=== PATIENT | male | born 1940 | race African-American/Black ===

== ENCOUNTER 2016-12-03 11:51 | Inpatient (IN) | payer OTHER ==
[~2016-12-03] VITALS: Ht 185.4 cm; Wt 104.3 kg
[2016-12-03] VITALS (12 sets, daily range): BP systolic 105–148; BP diastolic 65–90
[~2016-12-03 11:51] MED LIST: [UNRECOGNIZED DRUG - REMARK] SQ
[2016-12-03] MEDS ORDERED: HEPARIN for IV BOLUS 10,000 UNIT/10 ML VIAL. IV PRN (13:00)
[2016-12-03] MEDS: HEPARIN 25,000UTS/500ML PREMIX 500 ML IV PRN (13:38)
[2016-12-03 13:46] LABS: BASO % 0 % (0-3); EOS % 0 % (0-3); HEMATOCRIT 41.6 % (39.0-53.0); HEMOGLOBIN 13.8 g/dL (13.0-17.5); LYMPH # 0.3 x10^3/uL (1.0-4.8); LYMPH % 6 % (24-48); MEAN CORPUSCULAR HEMOGLOBIN 31 pg (25-35); MEAN CORPUSCULAR HGB CONC 33 g/dL (31-37); MEAN CORPUSCULAR VOLUME 93 fL (79-100); MONO % 2 % (0-9); NEUT % 93 % (31-73); PLATELET COUNT 262 x10^3/uL (140-400); RED BLOOD COUNT 4.49 x10^6/uL (4.30-5.70); RED CELL DISTRIBUTION WIDTH 13.2 % (11.5-14.5); WHITE BLOOD COUNT 5.7 x10^3/uL (4.0-11.0)
[2016-12-03 14:13] LABS: ALBUMIN 3.4 g/dL (3.4-5.0); ALBUMIN/GLOBULIN RATIO 0.7 (1.0-1.7); CALCIUM 9.2 mg/dL (8.5-10.1); CREATININE 2.5 mg/dL (0.7-1.3); GFR 30.6; MAGNESIUM 2.1 mg/dL (1.8-2.4); TOTAL BILIRUBIN 0.7 mg/dL (0.2-1.0); TOTAL PROTEIN 8.1 g/dL (6.4-8.2)
[2016-12-03] MEDS: IPRATRPIUM/ALBUTEROL 0.5/2.5MG 3 ML NEBU. NEB SCH ×3 (14:18→19:34)
[2016-12-03 14:47] LABS: % BASOS 1 % (0-3); PLT ESTIMATE ADEQUATE (ADEQUATE)
[2016-12-03 14:48] LABS: POIKILOCYTOSIS SLIGHT
[2016-12-03] MEDS ORDERED: METO100T7 PO (14:55)
[2016-12-03] MEDS ORDERED: ASPI-630 PO (14:55)
[2016-12-03] MEDS ORDERED: INSU100V11 IJ (14:55)
[2016-12-03] MEDS ORDERED: AMLO10TA2 PO (14:55)
[2016-12-03] MEDS ORDERED: FURO40TA4 PO (14:55)
[2016-12-03] MEDS ORDERED: CHOL10003 PO (14:55)
[2016-12-03] MEDS ORDERED: INSU100I13 SQ (14:55)
[2016-12-03] MEDS ORDERED: SENN8.6T99 PO (14:55)
[2016-12-03] MEDS ORDERED: SPIR25TA3 PO (14:55)
[2016-12-03] MEDS ORDERED: ISOS60TA2 PO (15:04)
[2016-12-03] MEDS ORDERED: INSU100I17 SQ (15:04)
[2016-12-03] MEDS ORDERED: ROPI0.5T PO (15:04)
[2016-12-03] MEDS ORDERED: DONE10TA7 PO (15:04)
[2016-12-03] MEDS ORDERED: LISI-334 PO (15:04)
[2016-12-03] MEDS ORDERED: MAGN400T3 PO (15:04)
[2016-12-03] MEDS ORDERED: TAMS0.4C2 PO (15:04)
[2016-12-03] MEDS ORDERED: IPRA3AMP NEB (15:07)
[2016-12-03] MEDS ORDERED: NITR0.4T22 SL (15:07)
[2016-12-03] MEDS ORDERED: OXYB10TA PO (15:07)
[2016-12-03] MEDS ORDERED: BUSP5TAB PO (15:07)
[2016-12-03] MEDS ORDERED: IV NORMAL SALINE 1000ML BAG 1,000 ML IV SCH (15:30)
[2016-12-03] MEDS ORDERED: ALBUTEROL SULFATE 2.5 MG/3 ML NEBU. NEB PRN (17:00)
--- NOTE | 2016-12-03 17:05 | PDOC ---
PULMONARY PROGRESS NOTES Vitals Vital Signs Date Time Temp Pulse Resp B/P (MAP) Pulse Ox O2 Delivery O2 Flow Rate FiO2 12/03/16 16:31 Nasal Cannula 2.0 12/03/16 16:00 98.7 79 24 105/79 (88) 98 98.7 Labs Laboratory Tests Test 12/03/16 13:35 White Blood Count 5.7 x10^3/uL (4.0-11.0) Red Blood Count 4.49 x10^6/uL (4.30-5.70) Hemoglobin 13.8 g/dL (13.0-17.5) Hematocrit 41.6 % (39.0-53.0) Mean Corpuscular Volume 93 fL (79-100) Mean Corpuscular Hemoglobin 31 pg (25-35) Mean Corpuscular Hemoglobin Concent 33 g/dL (31-37) Red Cell Distribution Width 13.2 % (11.5-14.5) Platelet Count 262 x10^3/uL (140-400) Neutrophils (%) (Auto) 93 % (31-73) Lymphocytes (%) (Auto) 6 % (24-48) Monocytes (%) (Auto) 2 % (0-9) Eosinophils (%) (Auto) 0 % (0-3) Basophils (%) (Auto) 0 % (0-3) Neutrophils # (Auto) 5.3 x10^3uL (1.8-7.7) Lymphocytes # (Auto) 0.3 x10^3/uL (1.0-4.8) Monocytes # (Auto) 0.1 x10^3/uL (0.0-1.1) Eosinophils # (Auto) 0.0 x10^3/uL (0.0-0.7) Basophils # (Auto) 0.0 x10^3/uL (0.0-0.2) Segmented Neutrophils % 75 % (35-66) Band Neutrophils % 16 % (0-9) Lymphocytes % 7 % (24-48) Monocytes % 1 % (0-10) Basophils % 1 % (0-3) Platelet Estimate Adequate (ADEQUATE) Poikilocytosis Slight Activated Partial Thromboplast Time 27 SEC (24-38) Sodium Level 138 mmol/L (136-145) Potassium Level 6.0 mmol/L (3.5-5.1) Chloride Level 102 mmol/L (98-107) Carbon Dioxide Level 23 mmol/L (21-32) Anion Gap 13 (6-14) Blood Urea Nitrogen 34 mg/dL (8-26) Creatinine 2.5 mg/dL (0.7-1.3) Estimated GFR (Cockcroft-Gault) 30.6 BUN/Creatinine Ratio 14 (6-20) Glucose Level 395 mg/dL (70-99) Calcium Level 9.2 mg/dL (8.5-10.1) Magnesium Level 2.1 mg/dL (1.8-2.4) Total Bilirubin 0.7 mg/dL (0.2-1.0) Aspartate Amino Transf (AST/SGOT) 103 U/L (15-37) Alanine Aminotransferase (ALT/SGPT) 27 U/L (16-63) Alkaline Phosphatase 125 U/L (46-116) Troponin I Quantitative 16.481 ng/mL (0.000-0.055) Total Protein 8.1 g/dL (6.4-8.2) Albumin 3.4 g/dL (3.4-5.0) Albumin/Globulin Ratio 0.7 (1.0-1.7) Laboratory Tests Test 12/03/16 13:35 White Blood Count 5.7 x10^3/uL (4.0-11.0) Red Blood Count 4.49 x10^6/uL (4.30-5.70) Hemoglobin 13.8 g/dL (13.0-17.5) Hematocrit 41.6 % (39.0-53.0) Mean Corpuscular Volume 93 fL (79-100) Mean Corpuscular Hemoglobin 31 pg (25-35) Mean Corpuscular Hemoglobin Concent 33 g/dL (31-37) Red Cell Distribution Width 13.2 % (11.5-14.5) Platelet Count 262 x10^3/uL (140-400) Neutrophils (%) (Auto) 93 % (31-73) Lymphocytes (%) (Auto) 6 % (24-48) Monocytes (%) (Auto) 2 % (0-9) Eosinophils (%) (Auto) 0 % (0-3) Basophils (%) (Auto) 0 % (0-3) Neutrophils # (Auto) 5.3 x10^3uL (1.8-7.7) Lymphocytes # (Auto) 0.3 x10^3/uL (1.0-4.8) Monocytes # (Auto) 0.1 x10^3/uL (0.0-1.1) Eosinophils # (Auto) 0.0 x10^3/uL (0.0-0.7) Basophils # (Auto) 0.0 x10^3/uL (0.0-0.2) Segmented Neutrophils % 75 % (35-66) Band Neutrophils % 16 % (0-9) Lymphocytes % 7 % (24-48) Monocytes % 1 % (0-10) Basophils % 1 % (0-3) Platelet Estimate Adequate (ADEQUATE) Poikilocytosis Slight Activated Partial Thromboplast Time 27 SEC (24-38) Sodium Level 138 mmol/L (136-145) Potassium Level 6.0 mmol/L (3.5-5.1) Chloride Level 102 mmol/L (98-107) Carbon Dioxide Level 23 mmol/L (21-32) Anion Gap 13 (6-14) Blood Urea Nitrogen 34 mg/dL (8-26) Creatinine 2.5 mg/dL (0.7-1.3) Estimated GFR (Cockcroft-Gault) 30.6 BUN/Creatinine Ratio 14 (6-20) Glucose Level 395 mg/dL (70-99) Calcium Level 9.2 mg/dL (8.5-10.1) Magnesium Level 2.1 mg/dL (1.8-2.4) Total Bilirubin 0.7 mg/dL (0.2-1.0) Aspartate Amino Transf (AST/SGOT) 103 U/L (15-37) Alanine Aminotransferase (ALT/SGPT) 27 U/L (16-63) Alkaline Phosphatase 125 U/L (46-116) Troponin I Quantitative 16.481 ng/mL (0.000-0.055) Total Protein 8.1 g/dL (6.4-8.2) Albumin 3.4 g/dL (3.4-5.0) Albumin/Globulin Ratio 0.7 (1.0-1.7) Medications Active Scripts Medications Dose Route/Sig Max Daily Dose Days Date Category Dose Instructions Duoneb 0.5-3(2.5) Mg/3 Ml (Albuterol/Ipratropium) 3 Ml Ampul.neb 3 Ml NEB PRN BID PRN 12/03/16 Reported NITROGLYCERIN SubLingual (Nitroglycerin) 0.4 Mg Tab.subl 0.4 Mg SL PRN Q5MIN PRN 12/03/16 Reported Buspirone Hcl 5 Mg Tablet 1 Tab PO DAILY 12/03/16 Reported Oxybutynin Chloride Er (Oxybutynin Chloride) 10 Mg Tab.er.24 1 Tab PO DAILY 12/03/16 Reported Novolog Flexpen (Insulin Aspart) 100 Unit/1 Ml Insuln.pen 16 Unit SQ TIDWMEALS 12/03/16 Reported Tamsulosin Hcl 0.4 Mg Cap.er.24h 1 Cap PO HS 12/03/16 Reported Lisinopril 20 Mg Tablet 1.5 Tab PO BID 12/03/16 Reported [lyric evolocumab] 140 Mg SQ UD 12/03/16 Reported every 2 months Magnesium Oxide 400 Mg Tablet 400 Mg PO DAILY 12/03/16 Reported Isosorbide Mononitrate Er (Isosorbide Mononitrate) 60 Mg Tab.er.24h 120 Mg PO DAILY 12/03/16 Reported Requip (Ropinirole Hcl) 0.5 Mg Tablet 0.5 Mg PO HS 12/03/16 Reported Donepezil Hcl 10 Mg Tablet 1 Tab PO DAILY 12/03/16 Reported Vitamin D3 (Cholecalciferol (Vitamin D3)) 1,000 Unit Tablet 2 Tab PO DAILY 12/03/16 Reported Spironolactone 25 Mg Tablet 1 Tab PO DAILY 12/03/16 Reported Aspirin 81 Mg Tab.chew 1 Tab PO DAILY 12/03/16 Reported Novolin R (Insulin Regular, Human) 100 Unit/1 Ml Vial 100 Unit IJ 12/03/16 Reported Lantus Solostar (Insulin Glargine,Hum.rec.anlog) 100 Unit/1 Ml Insuln.pen 26 Unit SQ QHS 12/03/16 Reported Amlodipine Besylate 10 Mg Tablet 5 Mg PO HS 12/03/16 Reported Senokot (Sennosides) 8.6 Mg Tablet 8.6 Mg PO PRN DAILY PRN 12/03/16 Reported Metoprolol Tartrate 100 Mg Tablet 0.5 Tab PO BID 12/03/16 Reported Furosemide 40 Mg Tablet 2 Tab PO [id number] 12/03/16 Reported Impression . acute resp failure acute chf acute MN UMANG HOLBROOK MD Dec 03, 2016 17:05
[2016-12-03] MEDS ORDERED: ASPIRIN ENTERIC COATED 325 MG TABLET.DR. PO ONE (19:15)
[2016-12-03] MEDS: ACETYLCYSTEINE 20% ORAL SOLN 600 MG/3 ML SYRINGE. PO SCH (20:16)
--- NOTE | 2016-12-03 21:47 | EKG ---
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
[2016-12-03] MEDS: NITROGLYCERIN OINT 1 GM PACKET. TP SCH (23:42)
[2016-12-04] VITALS (24 sets, daily range): BP systolic 84–156; BP diastolic 58–94
[2016-12-04] MEDS ORDERED: NITROGLYCERIN OINT 1 GM PACKET. TP SCH
[2016-12-04] MEDS ORDERED: NITROGLYCERIN SUBLINGUAL 0.4 MG BOTTLE OF 25. SL PRN ×2 (01:00→09:30)
[2016-12-04] MEDS ORDERED: FUROSEMIDE 100 MG/10 ML VIAL. IVP ONE (01:00)
[2016-12-04 05:31] LABS: BASO % 0 % (0-3); EOS % 0 % (0-3); HEMATOCRIT 38.5 % (39.0-53.0); HEMOGLOBIN 13.1 g/dL (13.0-17.5); LYMPH # 0.5 x10^3/uL (1.0-4.8); LYMPH % 4 % (24-48); MEAN CORPUSCULAR HEMOGLOBIN 31 pg (25-35); MEAN CORPUSCULAR HGB CONC 34 g/dL (31-37); MEAN CORPUSCULAR VOLUME 91 fL (79-100); MONO % 7 % (0-9); NEUT % 88 % (31-73); PLATELET COUNT 251 x10^3/uL (140-400); RED BLOOD COUNT 4.26 x10^6/uL (4.30-5.70); RED CELL DISTRIBUTION WIDTH 13.6 % (11.5-14.5); WHITE BLOOD COUNT 12.6 x10^3/uL (4.0-11.0)
[2016-12-04 05:32] LABS: CALCIUM 9.4 mg/dL (8.5-10.1); CREATININE 2.8 mg/dL (0.7-1.3); GFR 26.9; MAGNESIUM 1.8 mg/dL (1.8-2.4); POTASSIUM 4.8 mmol/L (3.5-5.1)
[2016-12-04] MEDS: NITROGLYCERIN OINT 1 GM PACKET. TP SCH ×2 (06:19→11:12)
[2016-12-04] MEDS: IPRATRPIUM/ALBUTEROL 0.5/2.5MG 3 ML NEBU. NEB SCH ×4 (07:54→20:09)
[2016-12-04] MEDS: ASPIRIN ENTERIC COATED 325 MG TABLET.DR. PO SCH (08:26)
[2016-12-04] MEDS ORDERED: INFLUENZA VAX SCREEN BY RX. MC PRN (08:30)
[2016-12-04] MEDS ORDERED: FLU VACC QS2017-18 (36MOS+)/PF 0.5 ML SYRINGE. VAX IM ONE (08:45)
--- NOTE | 2016-12-04 08:46 | RAD ---
EXAM: Chest, single view. HISTORY: Infiltrate. COMPARISON: None. FINDINGS: A frontal view of the chest is obtained. There is diffuse right upper lobe and perihilar predominant infiltrate. There is no effusion or pneumothorax. The heart is normal in size. There is evidence of prior median sternotomy. IMPRESSION: Diffuse right upper lobe and right perihilar predominant infiltrate. Follow-up to confirm complete resolution.
[2016-12-04] MEDS: ACETYLCYSTEINE 20% ORAL SOLN 600 MG/3 ML SYRINGE. PO SCH ×2 (09:00→20:51)
[2016-12-04] MEDS: HEPARIN 25,000UTS/500ML PREMIX 500 ML IV PRN (09:08)
[2016-12-04] MEDS ORDERED: IPRATRPIUM/ALBUTEROL 0.5/2.5MG 3 ML NEBU. NEB PRN (09:30)
[2016-12-04] MEDS ORDERED: EVOLOCUMAB 140 MG SQ SCH (09:30)
[2016-12-04] MEDS ORDERED: SENNOSIDES 8.6 MG TABLET PO PRN (09:30)
--- NOTE | 2016-12-04 09:40 | PDOC ---
PROGRESS NOTES Subjective Subjective Patient seen and examined. He denies chest pain. He reports mild shortness of breath. Objective Objective Vital Signs Date Time Temp Pulse Resp B/P (MAP) Pulse Ox O2 Delivery O2 Flow Rate FiO2 12/04/16 08:00 Nasal Cannula 2.5 12/04/16 07:00 98.5 100 22 140/86 (104) 90 98.5 Intake and Output 12/05/16 07:00 Output Total 200 ml Balance -200 ml Output Urine Total 200 ml Physical Exam Abdomen: Normal bowel sounds Heart: Regular rate General: No acute distress Lungs: Other (mildly decreased breath sounds) Assessment Assessment 1. Non-ST elevated myocardial infarction. Patient is pain-free. Troponin has increased to 25. Echocardiogram shows an ejection fraction of 15%. Preliminary report from the patient's most recent heart catheterization from 2 years ago shows a 70% left main, an occluded proximal LAD, 99% proximal left circumflex and an occluded right coronary artery. A CARRINGTON graft to the LAD was patent with a 70% distal lesion at the anastomosis. A vein graft to diagonal was patent. A vein graft to the obtuse marginal was closed. A vein graft to the right coronary artery was closed. Ejection fraction reportedly from April 2015 with 55% with mild mitral regurgitation. The patient is pain-free as above. We' ll continue on anticoagulation and baseline medications including beta blockers. Patient has chronic kidney disease with a creatinine yesterday of 2.5 and a potassium of 6.0. Potassium has normalized stable and his creatinine has increased to 2.8. We will continue medical treatment at this time. We'll obtain catheterization report from 2 years ago. We will consider future catheterization after stabilization of the patient's kidney function and further discussion with him regarding the risks and benefits of intervention. 2. Acute on chronic systolic heart failure. Fluid status mildly improved today. Ejection fraction of 15%. Renal consult has been obtained. 3. Diabetes mellitus as per the primary service. 4. Hypertension. We'll adjust medications as needed. 6. Reported hyperlipidemia. We'll check lipid panel. [facility]. [facility] a [facility] a cerebral infarction and mixed dementia. We' ll continue to monitor. 8. Possible sleep apnea. We'll attempt to obtain further records. Thank you for allowing us to participate in the care of your patient. Comment Review of Relevant I have reviewed the following items yomi (where applicable) has been applied. Labs Laboratory Tests Test 12/03/16 12:49 12/03/16 13:35 12/03/16 20:40 12/04/16 03:00 Nasal Screen MRSA (PCR) Negative (Negative) White Blood Count 5.7 x10^3/uL (4.0-11.0) Red Blood Count 4.49 x10^6/uL (4.30-5.70) Hemoglobin 13.8 g/dL (13.0-17.5) Hematocrit 41.6 % (39.0-53.0) Mean Corpuscular Volume 93 fL (79-100) Mean Corpuscular Hemoglobin 31 pg (25-35) Mean Corpuscular Hemoglobin Concent 33 g/dL (31-37) Red Cell Distribution Width 13.2 % (11.5-14.5) Platelet Count 262 x10^3/uL (140-400) Neutrophils (%) (Auto) 93 % (31-73) Lymphocytes (%) (Auto) 6 % (24-48) Monocytes (%) (Auto) 2 % (0-9) Eosinophils (%) (Auto) 0 % (0-3) Basophils (%) (Auto) 0 % (0-3) Neutrophils # (Auto) 5.3 x10^3uL (1.8-7.7) Lymphocytes # (Auto) 0.3 x10^3/uL (1.0-4.8) Monocytes # (Auto) 0.1 x10^3/uL (0.0-1.1) Eosinophils # (Auto) 0.0 x10^3/uL (0.0-0.7) Basophils # (Auto) 0.0 x10^3/uL (0.0-0.2) Segmented Neutrophils % 75 % (35-66) Band Neutrophils % 16 % (0-9) Lymphocytes % 7 % (24-48) Monocytes % 1 % (0-10) Basophils % 1 % (0-3) Platelet Estimate Adequate (ADEQUATE) Poikilocytosis Slight Activated Partial Thromboplast Time 27 SEC (24-38) Sodium Level 138 mmol/L (136-145) Potassium Level 6.0 mmol/L (3.5-5.1) Chloride Level 102 mmol/L (98-107) Carbon Dioxide Level 23 mmol/L (21-32) Anion Gap 13 (6-14) Blood Urea Nitrogen 34 mg/dL (8-26) Creatinine 2.5 mg/dL (0.7-1.3) Estimated GFR (Cockcroft-Gault) 30.6 BUN/Creatinine Ratio 14 (6-20) Glucose Level 395 mg/dL (70-99) Calcium Level 9.2 mg/dL (8.5-10.1) Magnesium Level 2.1 mg/dL (1.8-2.4) Total Bilirubin 0.7 mg/dL (0.2-1.0) Aspartate Amino Transf (AST/SGOT) 103 U/L (15-37) Alanine Aminotransferase (ALT/SGPT) 27 U/L (16-63) Alkaline Phosphatase 125 U/L (46-116) Troponin I Quantitative 16.481 ng/mL (0.000-0.055) Total Protein 8.1 g/dL (6.4-8.2) Albumin 3.4 g/dL (3.4-5.0) Albumin/Globulin Ratio 0.7 (1.0-1.7) Heparin Anti-Xa Act, Unfractionated 0.49 IU/mL (0.30-0.70) 0.39 IU/mL (0.30-0.70) Test 12/04/16 04:55 White Blood Count 12.6 x10^3/uL (4.0-11.0) Red Blood Count 4.26 x10^6/uL (4.30-5.70) Hemoglobin 13.1 g/dL (13.0-17.5) Hematocrit 38.5 % (39.0-53.0) Mean Corpuscular Volume 91 fL (79-100) Mean Corpuscular Hemoglobin 31 pg (25-35) Mean Corpuscular Hemoglobin Concent 34 g/dL (31-37) Red Cell Distribution Width 13.6 % (11.5-14.5) Platelet Count 251 x10^3/uL (140-400) Neutrophils (%) (Auto) 88 % (31-73) Lymphocytes (%) (Auto) 4 % (24-48) Monocytes (%) (Auto) 7 % (0-9) Eosinophils (%) (Auto) 0 % (0-3) Basophils (%) (Auto) 0 % (0-3) Neutrophils # (Auto) 11.1 x10^3uL (1.8-7.7) Lymphocytes # (Auto) 0.5 x10^3/uL (1.0-4.8) Monocytes # (Auto) 0.9 x10^3/uL (0.0-1.1) Eosinophils # (Auto) 0.0 x10^3/uL (0.0-0.7) Basophils # (Auto) 0.0 x10^3/uL (0.0-0.2) Sodium Level 136 mmol/L (136-145) Potassium Level 4.8 mmol/L (3.5-5.1) Chloride Level 98 mmol/L (98-107) Carbon Dioxide Level 18 mmol/L (21-32) Anion Gap 20 (6-14) Blood Urea Nitrogen 39 mg/dL (8-26) Creatinine 2.8 mg/dL (0.7-1.3) Estimated GFR (Cockcroft-Gault) 26.9 Glucose Level 375 mg/dL (70-99) Calcium Level 9.4 mg/dL (8.5-10.1) Magnesium Level 1.8 mg/dL (1.8-2.4) Troponin I Quantitative 25.763 ng/mL (0.000-0.055) Laboratory Tests Test 12/03/16 12:49 12/03/16 13:35 12/03/16 20:40 12/04/16 03:00 Nasal Screen MRSA (PCR) Negative (Negative) White Blood Count 5.7 x10^3/uL (4.0-11.0) Red Blood Count 4.49 x10^6/uL (4.30-5.70) Hemoglobin 13.8 g/dL (13.0-17.5) Hematocrit 41.6 % (39.0-53.0) Mean Corpuscular Volume 93 fL (79-100) Mean Corpuscular Hemoglobin 31 pg (25-35) Mean Corpuscular Hemoglobin Concent 33 g/dL (31-37) Red Cell Distribution Width 13.2 % (11.5-14.5) Platelet Count 262 x10^3/uL (140-400) Neutrophils (%) (Auto) 93 % (31-73) Lymphocytes (%) (Auto) 6 % (24-48) Monocytes (%) (Auto) 2 % (0-9) Eosinophils (%) (Auto) 0 % (0-3) Basophils (%) (Auto) 0 % (0-3) Neutrophils # (Auto) 5.3 x10^3uL (1.8-7.7) Lymphocytes # (Auto) 0.3 x10^3/uL (1.0-4.8) Monocytes # (Auto) 0.1 x10^3/uL (0.0-1.1) Eosinophils # (Auto) 0.0 x10^3/uL (0.0-0.7) Basophils # (Auto) 0.0 x10^3/uL (0.0-0.2) Segmented Neutrophils % 75 % (35-66) Band Neutrophils % 16 % (0-9) Lymphocytes % 7 % (24-48) Monocytes % 1 % (0-10) Basophils % 1 % (0-3) Platelet Estimate Adequate (ADEQUATE) Poikilocytosis Slight Activated Partial Thromboplast Time 27 SEC (24-38) Sodium Level 138 mmol/L (136-145) Potassium Level 6.0 mmol/L (3.5-5.1) Chloride Level 102 mmol/L (98-107) Carbon Dioxide Level 23 mmol/L (21-32) Anion Gap 13 (6-14) Blood Urea Nitrogen 34 mg/dL (8-26) Creatinine 2.5 mg/dL (0.7-1.3) Estimated GFR (Cockcroft-Gault) 30.6 BUN/Creatinine Ratio 14 (6-20) Glucose Level 395 mg/dL (70-99) Calcium Level 9.2 mg/dL (8.5-10.1) Magnesium Level 2.1 mg/dL (1.8-2.4) Total Bilirubin 0.7 mg/dL (0.2-1.0) Aspartate Amino Transf (AST/SGOT) 103 U/L (15-37) Alanine Aminotransferase (ALT/SGPT) 27 U/L (16-63) Alkaline Phosphatase 125 U/L (46-116) Troponin I Quantitative 16.481 ng/mL (0.000-0.055) Total Protein 8.1 g/dL (6.4-8.2) Albumin 3.4 g/dL (3.4-5.0) Albumin/Globulin Ratio 0.7 (1.0-1.7) Heparin Anti-Xa Act, Unfractionated 0.49 IU/mL (0.30-0.70) 0.39 IU/mL (0.30-0.70) Test 12/04/16 04:55 White Blood Count 12.6 x10^3/uL (4.0-11.0) Red Blood Count 4.26 x10^6/uL (4.30-5.70) Hemoglobin 13.1 g/dL (13.0-17.5) Hematocrit 38.5 % (39.0-53.0) Mean Corpuscular Volume 91 fL (79-100) Mean Corpuscular Hemoglobin 31 pg (25-35) Mean Corpuscular Hemoglobin Concent 34 g/dL (31-37) Red Cell Distribution Width 13.6 % (11.5-14.5) Platelet Count 251 x10^3/uL (140-400) Neutrophils (%) (Auto) 88 % (31-73) Lymphocytes (%) (Auto) 4 % (24-48) Monocytes (%) (Auto) 7 % (0-9) Eosinophils (%) (Auto) 0 % (0-3) Basophils (%) (Auto) 0 % (0-3) Neutrophils # (Auto) 11.1 x10^3uL (1.8-7.7) Lymphocytes # (Auto) 0.5 x10^3/uL (1.0-4.8) Monocytes # (Auto) 0.9 x10^3/uL (0.0-1.1) Eosinophils # (Auto) 0.0 x10^3/uL (0.0-0.7) Basophils # (Auto) 0.0 x10^3/uL (0.0-0.2) Sodium Level 136 mmol/L (136-145) Potassium Level 4.8 mmol/L (3.5-5.1) Chloride Level 98 mmol/L (98-107) Carbon Dioxide Level 18 mmol/L (21-32) Anion Gap 20 (6-14) Blood Urea Nitrogen 39 mg/dL (8-26) Creatinine 2.8 mg/dL (0.7-1.3) Estimated GFR (Cockcroft-Gault) 26.9 Glucose Level 375 mg/dL (70-99) Calcium Level 9.4 mg/dL (8.5-10.1) Magnesium Level 1.8 mg/dL (1.8-2.4) Troponin I Quantitative 25.763 ng/mL (0.000-0.055) Medications Current Medications Heparin Sodium/ Dextrose 500 ml @ 0 mls/hr CONT PRN IV SEE I/O RECORD Last administered on 12/04/16 09:08; Start 12/03/16 at 13:00 Heparin Sodium (Porcine) (Heparin Sodium) 2,450 unit PRN Q6HRS PRN IV FOR UFH LEVEL LESS THAN 0.2 Last administered on 12/03/16 13:30; Start 12/03/16 at 13: 00 Albuterol/ Ipratropium (Duoneb) 3 ml RTQID NEB Last administered on 12/04/16 07:54; Start 12/03/16 at 14:00 Sodium Chloride 1,000 ml @ 60 mls/hr [id number] IV ; Start 12/03/16 at 15:30; Stop 12/03/16 at 17:15; Status DC Acetylcysteine (Mucomyst 20% Oral Solution) 600 mg BID PO Last administered on 12/03/16 20:16; Start 12/03/16 at 21:00; Stop 12/05/16 at 20:59 Albuterol Sulfate (Ventolin Neb Soln) 2.5 mg PRN Q2HR PRN NEB [id number] Last administered on 12/03/16 23:49; Start 12/03/16 at 17:00 Aspirin (Ecotrin) 325 mg 1X ONCE PO Last administered on 12/03/16 20:16; Start 12/03/16 at 19:15; Stop 12/03/16 at 19:24; Status DC Aspirin (Ecotrin) 325 mg [id number] PO Last administered on 12/04/16 08:26; Start 12/04/16 at 08:00 Nitroglycerin (Nitro-Bid Oint) 1.5 inch Q6HRS TP ; Start 12/04/16 at 00:00; Stop 12/04/16 at 00:00; Status DC Nitroglycerin (Nitro-Bid Oint) 1.5 inch Q6HRS TP Last administered on 06:19; Start 12/04/16 at 00:00 Nitroglycerin (Nitrostat) 0.4 mg PRN Q5MIN PRN SL CHEST PAIN; Start 12/04/16 at 01:00 Furosemide (Lasix) 80 mg 1X ONCE IVP Last administered on 12/04/16 01:07; Start 12/04/16 at 01:00; Stop 12/04/16 at 01:01; Status DC Info (Do NOT chart on this placeholder) 1 each PRN 1X PRN MC SEE COMMENTS; Start 12/04/16 at 08:30; Status UNV Influenza Virus Vaccine Quadrival (Fluarix Quad [id number] Syringe) 0.5 ml ONCE ONCE VAX IM Last administered on 12/04/16 09:10; Start 12/04/16 at 08:45; Stop 12/04/16 at 08:46; Status DC Amlodipine Besylate (Norvasc) 5 mg HS PO ; Start 12/04/16 at 21:00; Status UNV Aspirin (Children'S Aspirin) 81 mg DAILY PO ; Start 12/05/16 at 09:00; Status UNV Buspirone HCl (Buspar) 5 mg DAILY PO ; Start 12/05/16 at 09:00; Status UNV Vitamin D (Vitamin D3) 2,000 unit DAILY PO ; Start 12/05/16 at 09:00; Status UNV Donepezil HCl (Aricept) 10 mg DAILY PO ; Start 12/05/16 at 09:00; Status UNV Furosemide (Lasix) 80 mg [id number] PO ; Start 12/04/16 at 14:00; Status UNV Insulin Aspart (NovoLOG) 16 units TIDWMEALS SQ ; Start 12/04/16 at 12:00; Status UNV Albuterol/ Ipratropium (Duoneb) 3 ml PRN BID PRN NEB SHORTNESS OF BREATH; Start 12/04/16 at 09:30; Status UNV Lisinopril (Prinivil) 30 mg BID PO ; Start 12/04/16 at 21:00; Status UNV Magnesium Oxide (Magnesium Oxide) 400 mg DAILY PO ; Start 12/05/16 at 09:00; Status UNV Nitroglycerin (Nitrostat) 0.4 mg PRN Q5MIN PRN SL CHEST PAIN; Start 12/04/16 at 09:30; Status UNV Sennosides (Senna) 8.6 mg PRN DAILY PRN PO CONSTIPATION; Start 12/04/16 at 09: 30; Status UNV Spironolactone (Aldactone) 25 mg DAILY PO ; Start 12/05/16 at 09:00; Status UNV Tamsulosin HCl (Flomax) 0.4 mg HS PO ; Start 12/04/16 at 21:00; Status UNV Non-Formulary Medication 26 unit QHS SQ ; Start 12/04/16 at 21:00; Status UNV Non-Formulary Medication 120 mg DAILY PO ; Start 12/05/16 at 09:00; Status UNV Non-Formulary Medication 0.5 tab BID PO ; Start 12/04/16 at 21:00; Status UNV Non-Formulary Medication 1 tab DAILY PO ; Start 12/05/16 at 09:00; Status UNV Non-Formulary Medication 0.5 mg HS PO ; Start 12/04/16 at 21:00; Status UNV Non-Formulary Medication 140 mg UD SQ ; Start 12/04/16 at 09:30; Status UNV Active Scripts Active Reported Duoneb 0.5-3(2.5) Mg/3 Ml (Albuterol/Ipratropium) 3 Ml Ampul.neb 3 Ml NEB PRN BID PRN NITROGLYCERIN SubLingual (Nitroglycerin) 0.4 Mg Tab.subl 0.4 Mg SL PRN Q5MIN PRN Buspirone Hcl 5 Mg Tablet 1 Tab PO DAILY Oxybutynin Chloride Er (Oxybutynin Chloride) 10 Mg Tab.er.24 1 Tab PO DAILY Novolog Flexpen (Insulin Aspart) 100 Unit/1 Ml Insuln.pen 16 Unit SQ TIDWMEALS Tamsulosin Hcl 0.4 Mg Cap.er.24h 1 Cap PO HS Lisinopril 20 Mg Tablet 1.5 Tab PO BID [lyric evolocumab] 140 Mg SQ UD every 2 months Magnesium Oxide 400 Mg Tablet 400 Mg PO DAILY Isosorbide Mononitrate Er (Isosorbide Mononitrate) 60 Mg Tab.er.24h 120 Mg PO DAILY Requip (Ropinirole Hcl) 0.5 Mg Tablet 0.5 Mg PO HS Donepezil Hcl 10 Mg Tablet 1 Tab PO DAILY Vitamin D3 (Cholecalciferol (Vitamin D3)) 1,000 Unit Tablet 2 Tab PO DAILY Spironolactone 25 Mg Tablet 1 Tab PO DAILY Aspirin 81 Mg Tab.chew 1 Tab PO DAILY Novolin R (Insulin Regular, Human) 100 Unit/1 Ml Vial 100 Unit IJ Lantus Solostar (Insulin Glargine,Hum.rec.anlog) 100 Unit/1 Ml Insuln.pen 26 Unit SQ QHS Amlodipine Besylate 10 Mg Tablet 5 Mg PO HS Senokot (Sennosides) 8.6 Mg Tablet 8.6 Mg PO PRN DAILY PRN Metoprolol Tartrate 100 Mg Tablet 0.5 Tab PO BID Furosemide 40 Mg Tablet 2 Tab PO [id number] Vitals/I & O Vital Sign - Last 24 Hours 12/03/16 12/03/16 12/03/16 12/03/16 12:45 12:45 13:00 14:00 Temp 97.9 97.9 Pulse 84 72 73 Resp 27 18 19 B/P (MAP) 142/90 (107) 138/75 (96) 133/68 (89) Pulse Ox 99 100 100 O2 Delivery Nasal Cannula Nasal Cannula Nasal Cannula Nasal Cannula O2 Flow Rate 2.0 2.0 2.0 2.0 12/03/16 12/03/16 12/03/16 12/03/16 14:19 15:00 16:00 16:00 Temp 98.7 98.7 Pulse 78 79 Resp 18 24 B/P (MAP) 144/67 (92) 105/79 (88) Pulse Ox 98 98 98 O2 Delivery Nasal Cannula Nasal Cannula Nasal Cannula Nasal Cannula O2 Flow Rate 2.0 2.0 2.0 2.0 12/03/16 12/03/16 12/03/16 12/03/16 16:31 17:00 18:00 19:00 Pulse 88 100 88 Resp 24 30 24 B/P (MAP) 128/66 (86) 121/67 (85) 139/69 (92) Pulse Ox 99 99 98 O2 Delivery Nasal Cannula Nasal Cannula Nasal Cannula Nasal Cannula O2 Flow Rate 2.0 2.0 2.0 2.0 12/03/16 12/03/16 12/03/16 12/03/16 19:35 20:00 20:00 21:00 Temp 97.8 97.8 Pulse 88 102 Resp 20 23 B/P (MAP) 131/65 (87) 148/89 (108) Pulse Ox 99 100 98 O2 Delivery Nasal Cannula Nasal Cannula Nasal Cannula Nasal Cannula O2 Flow Rate 2.0 2.0 2.0 2.0 12/03/16 12/03/16 12/03/16 12/03/16 22:00 23:00 23:42 23:49 Pulse 94 96 104 Resp 18 20 B/P (MAP) 124/67 (86) 143/74 (97) 142/91 Pulse Ox 99 98 O2 Delivery Nasal Cannula Nasal Cannula Nasal Cannula O2 Flow Rate 2.0 2.0 2.0 12/03/16 12/04/16 12/04/16 12/04/16 23:50 00:00 01:00 02:00 Temp 98.7 98.7 Pulse 98 114 102 Resp 30 22 B/P (MAP) 139/70 (93) 156/94 (114) 145/71 (95) Pulse Ox 99 100 100 100 O2 Delivery Nasal Cannula Nasal Cannula Nasal Cannula Nasal Cannula O2 Flow Rate 2.0 2.0 2.0 2.0 12/04/16 12/04/16 12/04/16 12/04/16 03:00 04:00 04:00 05:00 Temp 98.2 98.2 Pulse 107 101 98 Resp 24 18 B/P (MAP) 123/66 (85) 114/69 (84) 140/74 (96) Pulse Ox 98 98 99 O2 Delivery Nasal Cannula Nasal Cannula Nasal Cannula Nasal Cannula O2 Flow Rate 2.0 2.0 2.0 2.0 12/04/16 12/04/16 12/04/16 12/04/16 06:00 06:19 07:00 08:00 Temp 98.5 98.5 Pulse 105 101 100 Resp 22 B/P (MAP) 128/76 (93) 128/76 140/86 (104) Pulse Ox 98 90 O2 Delivery Nasal Cannula Nasal Cannula Nasal Cannula O2 Flow Rate 2.0 2.0 2.5 Intake and Output 12/04/16 12/04/16 12/05/16 15:00 23:00 07:00 Output Total 200 ml Balance -200 ml KADIE FONTANA MD Dec 04, 2016 09:40
[2016-12-04] MEDS: amLODIPine BESYLATE 5 MG TABLET PO SCH (10:00)
[2016-12-04] MEDS ORDERED: LISINOPRIL 10 MG TABLET PO SCH (10:00)
[2016-12-04] MEDS: FUROSEMIDE 40 MG TABLET. PO SCH ×2 (10:00→12:32)
--- NOTE | 2016-12-04 10:01 | PDOC ---
PULMONARY PROGRESS NOTES Subjective PT FEELS BETTER LESS SOA Vitals Vital Signs Date Time Temp Pulse Resp B/P (MAP) Pulse Ox O2 Delivery O2 Flow Rate FiO2 12/04/16 09:00 106 25 127/71 (89) 96 Nasal Cannula 2.5 12/04/16 08:00 98.5 98.5 ROS: No Nausea, No Chest Pain, No Abdominal Pain Lungs: Clear Cardiovascular: S1, S2 Abdomen: Soft Neuro Exam: Alert Extremities: No Edema Skin: Warm Labs Laboratory Tests Test 12/03/16 12:49 12/03/16 13:35 12/03/16 20:40 12/04/16 03:00 Nasal Screen MRSA (PCR) Negative (Negative) White Blood Count 5.7 x10^3/uL (4.0-11.0) Red Blood Count 4.49 x10^6/uL (4.30-5.70) Hemoglobin 13.8 g/dL (13.0-17.5) Hematocrit 41.6 % (39.0-53.0) Mean Corpuscular Volume 93 fL (79-100) Mean Corpuscular Hemoglobin 31 pg (25-35) Mean Corpuscular Hemoglobin Concent 33 g/dL (31-37) Red Cell Distribution Width 13.2 % (11.5-14.5) Platelet Count 262 x10^3/uL (140-400) Neutrophils (%) (Auto) 93 % (31-73) Lymphocytes (%) (Auto) 6 % (24-48) Monocytes (%) (Auto) 2 % (0-9) Eosinophils (%) (Auto) 0 % (0-3) Basophils (%) (Auto) 0 % (0-3) Neutrophils # (Auto) 5.3 x10^3uL (1.8-7.7) Lymphocytes # (Auto) 0.3 x10^3/uL (1.0-4.8) Monocytes # (Auto) 0.1 x10^3/uL (0.0-1.1) Eosinophils # (Auto) 0.0 x10^3/uL (0.0-0.7) Basophils # (Auto) 0.0 x10^3/uL (0.0-0.2) Segmented Neutrophils % 75 % (35-66) Band Neutrophils % 16 % (0-9) Lymphocytes % 7 % (24-48) Monocytes % 1 % (0-10) Basophils % 1 % (0-3) Platelet Estimate Adequate (ADEQUATE) Poikilocytosis Slight Activated Partial Thromboplast Time 27 SEC (24-38) Sodium Level 138 mmol/L (136-145) Potassium Level 6.0 mmol/L (3.5-5.1) Chloride Level 102 mmol/L (98-107) Carbon Dioxide Level 23 mmol/L (21-32) Anion Gap 13 (6-14) Blood Urea Nitrogen 34 mg/dL (8-26) Creatinine 2.5 mg/dL (0.7-1.3) Estimated GFR (Cockcroft-Gault) 30.6 BUN/Creatinine Ratio 14 (6-20) Glucose Level 395 mg/dL (70-99) Calcium Level 9.2 mg/dL (8.5-10.1) Magnesium Level 2.1 mg/dL (1.8-2.4) Total Bilirubin 0.7 mg/dL (0.2-1.0) Aspartate Amino Transf (AST/SGOT) 103 U/L (15-37) Alanine Aminotransferase (ALT/SGPT) 27 U/L (16-63) Alkaline Phosphatase 125 U/L (46-116) Troponin I Quantitative 16.481 ng/mL (0.000-0.055) Total Protein 8.1 g/dL (6.4-8.2) Albumin 3.4 g/dL (3.4-5.0) Albumin/Globulin Ratio 0.7 (1.0-1.7) Heparin Anti-Xa Act, Unfractionated 0.49 IU/mL (0.30-0.70) 0.39 IU/mL (0.30-0.70) Test 12/04/16 04:55 White Blood Count 12.6 x10^3/uL (4.0-11.0) Red Blood Count 4.26 x10^6/uL (4.30-5.70) Hemoglobin 13.1 g/dL (13.0-17.5) Hematocrit 38.5 % (39.0-53.0) Mean Corpuscular Volume 91 fL (79-100) Mean Corpuscular Hemoglobin 31 pg (25-35) Mean Corpuscular Hemoglobin Concent 34 g/dL (31-37) Red Cell Distribution Width 13.6 % (11.5-14.5) Platelet Count 251 x10^3/uL (140-400) Neutrophils (%) (Auto) 88 % (31-73) Lymphocytes (%) (Auto) 4 % (24-48) Monocytes (%) (Auto) 7 % (0-9) Eosinophils (%) (Auto) 0 % (0-3) Basophils (%) (Auto) 0 % (0-3) Neutrophils # (Auto) 11.1 x10^3uL (1.8-7.7) Lymphocytes # (Auto) 0.5 x10^3/uL (1.0-4.8) Monocytes # (Auto) 0.9 x10^3/uL (0.0-1.1) Eosinophils # (Auto) 0.0 x10^3/uL (0.0-0.7) Basophils # (Auto) 0.0 x10^3/uL (0.0-0.2) Sodium Level 136 mmol/L (136-145) Potassium Level 4.8 mmol/L (3.5-5.1) Chloride Level 98 mmol/L (98-107) Carbon Dioxide Level 18 mmol/L (21-32) Anion Gap 20 (6-14) Blood Urea Nitrogen 39 mg/dL (8-26) Creatinine 2.8 mg/dL (0.7-1.3) Estimated GFR (Cockcroft-Gault) 26.9 Glucose Level 375 mg/dL (70-99) Calcium Level 9.4 mg/dL (8.5-10.1) Magnesium Level 1.8 mg/dL (1.8-2.4) Troponin I Quantitative 25.763 ng/mL (0.000-0.055) Laboratory Tests Test 12/03/16 12:49 12/03/16 13:35 12/03/16 20:40 12/04/16 03:00 Nasal Screen MRSA (PCR) Negative (Negative) White Blood Count 5.7 x10^3/uL (4.0-11.0) Red Blood Count 4.49 x10^6/uL (4.30-5.70) Hemoglobin 13.8 g/dL (13.0-17.5) Hematocrit 41.6 % (39.0-53.0) Mean Corpuscular Volume 93 fL (79-100) Mean Corpuscular Hemoglobin 31 pg (25-35) Mean Corpuscular Hemoglobin Concent 33 g/dL (31-37) Red Cell Distribution Width 13.2 % (11.5-14.5) Platelet Count 262 x10^3/uL (140-400) Neutrophils (%) (Auto) 93 % (31-73) Lymphocytes (%) (Auto) 6 % (24-48) Monocytes (%) (Auto) 2 % (0-9) Eosinophils (%) (Auto) 0 % (0-3) Basophils (%) (Auto) 0 % (0-3) Neutrophils # (Auto) 5.3 x10^3uL (1.8-7.7) Lymphocytes # (Auto) 0.3 x10^3/uL (1.0-4.8) Monocytes # (Auto) 0.1 x10^3/uL (0.0-1.1) Eosinophils # (Auto) 0.0 x10^3/uL (0.0-0.7) Basophils # (Auto) 0.0 x10^3/uL (0.0-0.2) Segmented Neutrophils % 75 % (35-66) Band Neutrophils % 16 % (0-9) Lymphocytes % 7 % (24-48) Monocytes % 1 % (0-10) Basophils % 1 % (0-3) Platelet Estimate Adequate (ADEQUATE) Poikilocytosis Slight Activated Partial Thromboplast Time 27 SEC (24-38) Sodium Level 138 mmol/L (136-145) Potassium Level 6.0 mmol/L (3.5-5.1) Chloride Level 102 mmol/L (98-107) Carbon Dioxide Level 23 mmol/L (21-32) Anion Gap 13 (6-14) Blood Urea Nitrogen 34 mg/dL (8-26) Creatinine 2.5 mg/dL (0.7-1.3) Estimated GFR (Cockcroft-Gault) 30.6 BUN/Creatinine Ratio 14 (6-20) Glucose Level 395 mg/dL (70-99) Calcium Level 9.2 mg/dL (8.5-10.1) Magnesium Level 2.1 mg/dL (1.8-2.4) Total Bilirubin 0.7 mg/dL (0.2-1.0) Aspartate Amino Transf (AST/SGOT) 103 U/L (15-37) Alanine Aminotransferase (ALT/SGPT) 27 U/L (16-63) Alkaline Phosphatase 125 U/L (46-116) Troponin I Quantitative 16.481 ng/mL (0.000-0.055) Total Protein 8.1 g/dL (6.4-8.2) Albumin 3.4 g/dL (3.4-5.0) Albumin/Globulin Ratio 0.7 (1.0-1.7) Heparin Anti-Xa Act, Unfractionated 0.49 IU/mL (0.30-0.70) 0.39 IU/mL (0.30-0.70) Test 12/04/16 04:55 White Blood Count 12.6 x10^3/uL (4.0-11.0) Red Blood Count 4.26 x10^6/uL (4.30-5.70) Hemoglobin 13.1 g/dL (13.0-17.5) Hematocrit 38.5 % (39.0-53.0) Mean Corpuscular Volume 91 fL (79-100) Mean Corpuscular Hemoglobin 31 pg (25-35) Mean Corpuscular Hemoglobin Concent 34 g/dL (31-37) Red Cell Distribution Width 13.6 % (11.5-14.5) Platelet Count 251 x10^3/uL (140-400) Neutrophils (%) (Auto) 88 % (31-73) Lymphocytes (%) (Auto) 4 % (24-48) Monocytes (%) (Auto) 7 % (0-9) Eosinophils (%) (Auto) 0 % (0-3) Basophils (%) (Auto) 0 % (0-3) Neutrophils # (Auto) 11.1 x10^3uL (1.8-7.7) Lymphocytes # (Auto) 0.5 x10^3/uL (1.0-4.8) Monocytes # (Auto) 0.9 x10^3/uL (0.0-1.1) Eosinophils # (Auto) 0.0 x10^3/uL (0.0-0.7) Basophils # (Auto) 0.0 x10^3/uL (0.0-0.2) Sodium Level 136 mmol/L (136-145) Potassium Level 4.8 mmol/L (3.5-5.1) Chloride Level 98 mmol/L (98-107) Carbon Dioxide Level 18 mmol/L (21-32) Anion Gap 20 (6-14) Blood Urea Nitrogen 39 mg/dL (8-26) Creatinine 2.8 mg/dL (0.7-1.3) Estimated GFR (Cockcroft-Gault) 26.9 Glucose Level 375 mg/dL (70-99) Calcium Level 9.4 mg/dL (8.5-10.1) Magnesium Level 1.8 mg/dL (1.8-2.4) Troponin I Quantitative 25.763 ng/mL (0.000-0.055) Medications Active Scripts Medications Dose Route/Sig Max Daily Dose Days Date Category Dose Instructions Duoneb 0.5-3(2.5) Mg/3 Ml (Albuterol/Ipratropium) 3 Ml Ampul.neb 3 Ml NEB PRN BID PRN 12/03/16 Reported NITROGLYCERIN SubLingual (Nitroglycerin) 0.4 Mg Tab.subl 0.4 Mg SL PRN Q5MIN PRN 12/03/16 Reported Buspirone Hcl 5 Mg Tablet 1 Tab PO DAILY 12/03/16 Reported Oxybutynin Chloride Er (Oxybutynin Chloride) 10 Mg Tab.er.24 1 Tab PO DAILY 12/03/16 Reported Novolog Flexpen (Insulin Aspart) 100 Unit/1 Ml Insuln.pen 16 Unit SQ TIDWMEALS 12/03/16 Reported Tamsulosin Hcl 0.4 Mg Cap.er.24h 1 Cap PO HS 12/03/16 Reported Lisinopril 20 Mg Tablet 1.5 Tab PO BID 12/03/16 Reported [lyric evolocumab] 140 Mg SQ UD 12/03/16 Reported every 2 months Magnesium Oxide 400 Mg Tablet 400 Mg PO DAILY 12/03/16 Reported Isosorbide Mononitrate Er (Isosorbide Mononitrate) 60 Mg Tab.er.24h 120 Mg PO DAILY 12/03/16 Reported Requip (Ropinirole Hcl) 0.5 Mg Tablet 0.5 Mg PO HS 12/03/16 Reported Donepezil Hcl 10 Mg Tablet 1 Tab PO DAILY 12/03/16 Reported Vitamin D3 (Cholecalciferol (Vitamin D3)) 1,000 Unit Tablet 2 Tab PO DAILY 12/03/16 Reported Spironolactone 25 Mg Tablet 1 Tab PO DAILY 12/03/16 Reported Aspirin 81 Mg Tab.chew 1 Tab PO DAILY 12/03/16 Reported Novolin R (Insulin Regular, Human) 100 Unit/1 Ml Vial 100 Unit IJ 12/03/16 Reported Lantus Solostar (Insulin Glargine,Hum.rec.anlog) 100 Unit/1 Ml Insuln.pen 26 Unit SQ QHS 12/03/16 Reported Amlodipine Besylate 10 Mg Tablet 5 Mg PO HS 12/03/16 Reported Senokot (Sennosides) 8.6 Mg Tablet 8.6 Mg PO PRN DAILY PRN 12/03/16 Reported Metoprolol Tartrate 100 Mg Tablet 0.5 Tab PO BID 12/03/16 Reported Furosemide 40 Mg Tablet 2 Tab PO [id number] 12/03/16 Reported Impression . 1. Acute hypoxemic respiratory failure secondary to acute systolic heart failure. 2. Acute on chronic systolic heart failure. 3. Cardiomyopathy, ejection fraction 15%. 4. Coronary artery disease status post coronary artery bypass grafting and valvular heart replacement. 5. Diabetes with complications. 6. Chronic obstructive pulmonary disease, unknown FEV1. 7. Acute renal insufficiency. 8. Elevated troponin, suspect non-ST segment elevation myocardial infarction. 9. Hyperkalemia. 10. Type 2 diabetes, uncontrolled. Plan . PT LESS SOA TODAY DIURESED WELL CARD NOTE APPRECIATED WILL FOLLOW RENAL INPUT 02 NO NEED FOR ANTIBX UMANG HOLBROOK MD Dec 04, 2016 10:01
[2016-12-04] MEDS ORDERED: ASPIRIN CHEWABLE 81 MG TABLET. PO SCH (11:00)
[2016-12-04] MEDS: OXYBUTYNIN CHLORIDE 5 MG TABLET PO SCH ×2 (11:04→20:50)
[2016-12-04] MEDS: DONEPEZIL HCL 10 MG TABLET. PO SCH (11:04)
[2016-12-04] MEDS: busPIRone 5 MG TABLET. PO SCH (11:04)
[2016-12-04] MEDS: CHOLECALCIFEROL (VITAMIN D3) 1,000 UNIT TABLET PO SCH (11:05)
[2016-12-04] MEDS: SPIRONOLACTONE 25 MG TABLET PO SCH (11:05)
[2016-12-04] MEDS: MAGNESIUM OXIDE 400 MG TABLET PO SCH (11:05)
[2016-12-04] MEDS: ISOSORBIDE MONONITRATE ER 30 MG TAB.ER.24H PO SCH (11:06)
[2016-12-04] MEDS: METOPROLOL TART IMMED RELEASE 50 MG TABLET. PO SCH ×2 (11:06→20:51)
[2016-12-04] MEDS: INSULIN ASPART 300 UNITS/3 ML INSULN.PEN SQ SCH ×2 (11:11→16:48)
--- NOTE | 2016-12-04 13:50 | PDOC2 ---
CONSULT Date of Consult Date of Consult DATE: 12/04/16 TIME: 13:40 Reason for Consult Reason for Consult: RENAL FAILURE Referring Physician Referring Physician: WILD Identification/Chief Complaint Chief Complaint CHEST PAIN AND SOB Problems: Source Source: Chart review, Patient History of Present Illness Reason for Visit: THIS IS A 76 YR OLD ADMITTED WITH CHEST PAIN AND SOB. AN ADMIT K WAS 6.0 AND CR ABOUT 2.5. MILD CHF NOTED. HE HAS CKD STAGE 3 TO 4 WITH A BASELINE CR IN THE 2.0 -2.5 RANGE. OLD RECORDS FROM [facility] REVIEWED. CURRENTLY HAS SOME PULMONARY VASCULAR CONGESTION AND HE HAS ALSO SUFFERED AN AMI. CARDIOLOGY EVAL IS ONGOING AT THIS TIME. HE HAS END ORGAN DAMAGE FROM DM II AND HTN. XRAY IS CONCERNING FOR AN RUL INFILTRATE. HOME MED HAVE INCLUDED A K SPARING DIURETIC, AND CHANELLE-I AND A LOOP DIURETIC. MOST RECENT EF IS 15%. HAS BEEN NEAR NORMAL ABOUT A YEAR AGO. MILD LEUCOCYTOSIS IS ALSO NOTED Past Medical History Cardiovascular: CAD, CHF, HTN, Hyperlipidemia GI: Constipation Heme/Onc: Anemia NOS Renal/: Chronic renal insuff, Benign prostatic enlarg. Endocrine: Diabetes Family History Family History: No Significant Social History No ALCOHOL: none Drugs: None Lives: with Family Current Medications Current Medications Current Medications Heparin Sodium/ Dextrose 500 ml @ 0 mls/hr CONT PRN IV SEE I/O RECORD Last administered on 12/04/16 09:08; Start 12/03/16 at 13:00 Heparin Sodium (Porcine) (Heparin Sodium) 2,450 unit PRN Q6HRS PRN IV FOR UFH LEVEL LESS THAN 0.2 Last administered on 12/03/16 13:30; Start 12/03/16 at 13: 00 Albuterol/ Ipratropium (Duoneb) 3 ml RTQID NEB Last administered on 12/04/16 11:00; Start 12/03/16 at 14:00 Sodium Chloride 1,000 ml @ 60 mls/hr [id number] IV ; Start 12/03/16 at 15:30; Stop 12/03/16 at 17:15; Status DC Acetylcysteine (Mucomyst 20% Oral Solution) 600 mg BID PO Last administered on 12/03/16 20:16; Start 12/03/16 at 21:00; Stop 12/05/16 at 20:59 Albuterol Sulfate (Ventolin Neb Soln) 2.5 mg PRN Q2HR PRN NEB [id number] Last administered on 12/03/16 23:49; Start 12/03/16 at 17:00 Aspirin (Ecotrin) 325 mg 1X ONCE PO Last administered on 12/03/16 20:16; Start 12/03/16 at 19:15; Stop 12/04/16 at 09:42; Status DC Aspirin (Ecotrin) 325 mg [id number] PO Last administered on 12/04/16 08:26; Start 12/04/16 at 08:00 Nitroglycerin (Nitro-Bid Oint) 1.5 inch Q6HRS TP ; Start 12/04/16 at 00:00; Stop 12/04/16 at 00:00; Status DC Nitroglycerin (Nitro-Bid Oint) 1.5 inch Q6HRS TP Last administered on 06:19; Start 12/04/16 at 00:00 Nitroglycerin (Nitrostat) 0.4 mg PRN Q5MIN PRN SL CHEST PAIN; Start 12/04/16 at 01:00; Stop 12/04/16 at 10:57; Status DC Furosemide (Lasix) 80 mg 1X ONCE IVP Last administered on 12/04/16 01:07; Start 12/04/16 at 01:00; Stop 12/04/16 at 01:01; Status DC Info (Do NOT chart on this placeholder) 1 each PRN 1X PRN MC SEE COMMENTS; Start 12/04/16 at 08:30; Status UNV Influenza Virus Vaccine Quadrival (Fluarix Quad [id number] Syringe) 0.5 ml ONCE ONCE VAX IM Last administered on 12/04/16 09:10; Start 12/04/16 at 08:45; Stop 12/04/16 at 08:46; Status DC Amlodipine Besylate (Norvasc) 5 mg DAILY PO ; Start 12/04/16 at 10:00 Aspirin (Children'S Aspirin) 81 mg DAILY PO ; Start 12/04/16 at 11:00; Stop at 11:00; Status DC Buspirone HCl (Buspar) 5 mg DAILY PO Last administered on 12/04/16 11:04; Start 12/04/16 at 10:00 Vitamin D (Vitamin D3) 2,000 unit DAILY PO Last administered on 12/04/16 11:05 ; Start 12/04/16 at 10:00 Donepezil HCl (Aricept) 10 mg DAILY PO Last administered on 12/04/16 11:04; Start 12/04/16 at 10:00 Furosemide (Lasix) 80 mg [id number] PO ; Start 12/04/16 at 10:00 Insulin Aspart (NovoLOG) 16 units TIDWMEALS SQ Last administered on 12/04/16 11:11; Start 12/04/16 at 12:00 Albuterol/ Ipratropium (Duoneb) 3 ml PRN BID PRN NEB SHORTNESS OF BREATH; Start 12/04/16 at 09:30; Status Cancel Lisinopril (Prinivil) 30 mg BID PO ; Start 12/04/16 at 10:00; Stop 12/04/16 at 10:54; Status DC Magnesium Oxide (Magnesium Oxide) 400 mg DAILY PO Last administered on 11:05; Start 12/04/16 at 10:00 Nitroglycerin (Nitrostat) 0.4 mg PRN Q5MIN PRN SL CHEST PAIN; Start 12/04/16 at 09:30 Sennosides (Senna) 8.6 mg PRN DAILY PRN PO CONSTIPATION; Start 12/04/16 at 09: 30 Spironolactone (Aldactone) 25 mg DAILY PO Last administered on 12/04/16 11:05 ; Start 12/04/16 at 10:00 Tamsulosin HCl (Flomax) 0.4 mg HS PO ; Start 12/04/16 at 21:00 Insulin Detemir (Levemir) 26 units QHS SQ ; Start 12/04/16 at 21:00 Isosorbide Mononitrate (Imdur) 120 mg DAILY PO Last administered on 12/04/16 11:06; Start 12/04/16 at 11:00 Metoprolol Tartrate (Lopressor) 50 mg BID PO Last administered on 12/04/16 11: 06; Start 12/04/16 at 11:00 Oxybutynin Chloride (Ditropan) 5 mg BID PO Last administered on 12/04/16 11:04 ; Start 12/04/16 at 11:00 Ropinirole HCl (Requip) 0.5 mg QHS PO ; Start 12/04/16 at 21:00 Non-Formulary Medication 140 mg UD SQ ; Start 12/04/16 at 09:30; Stop 12/04/16 at 10:36; Status DC Sodium Bicarbonate 50 meq/Sodium Chloride 1,050 ml @ 50 mls/hr Q21H IV ; Start 12/04/16 at 15:00; Status UNV Active Scripts Active Reported Duoneb 0.5-3(2.5) Mg/3 Ml (Albuterol/Ipratropium) 3 Ml Ampul.neb 3 Ml NEB PRN BID PRN NITROGLYCERIN SubLingual (Nitroglycerin) 0.4 Mg Tab.subl 0.4 Mg SL PRN Q5MIN PRN Buspirone Hcl 5 Mg Tablet 1 Tab PO DAILY Oxybutynin Chloride Er (Oxybutynin Chloride) 10 Mg Tab.er.24 1 Tab PO DAILY Novolog Flexpen (Insulin Aspart) 100 Unit/1 Ml Insuln.pen 16 Unit SQ TIDWMEALS Tamsulosin Hcl 0.4 Mg Cap.er.24h 1 Cap PO HS Lisinopril 20 Mg Tablet 1.5 Tab PO BID [lyric evolocumab] 140 Mg SQ UD every 2 months Magnesium Oxide 400 Mg Tablet 400 Mg PO DAILY Isosorbide Mononitrate Er (Isosorbide Mononitrate) 60 Mg Tab.er.24h 120 Mg PO DAILY Requip (Ropinirole Hcl) 0.5 Mg Tablet 0.5 Mg PO HS Donepezil Hcl 10 Mg Tablet 1 Tab PO DAILY Vitamin D3 (Cholecalciferol (Vitamin D3)) 1,000 Unit Tablet 2 Tab PO DAILY Spironolactone 25 Mg Tablet 1 Tab PO DAILY Aspirin 81 Mg Tab.chew 1 Tab PO DAILY Novolin R (Insulin Regular, Human) 100 Unit/1 Ml Vial 100 Unit IJ Lantus Solostar (Insulin Glargine,Hum.rec.anlog) 100 Unit/1 Ml Insuln.pen 26 Unit SQ QHS Amlodipine Besylate 10 Mg Tablet 5 Mg PO HS Senokot (Sennosides) 8.6 Mg Tablet 8.6 Mg PO PRN DAILY PRN Metoprolol Tartrate 100 Mg Tablet 0.5 Tab PO BID Furosemide 40 Mg Tablet 2 Tab PO [id number] Allergies Allergies: Coded Allergies: aspirin (Verified Allergy, Intermediate, 12/03/16) gabapentin (Verified Allergy, Intermediate, 12/03/16) terazosin (Verified Allergy, Intermediate, 12/03/16) ROS General: YES: Fatigue PSYCHOLOGICAL ROS: YES: Anxiety, Depression Eyes: Yes Decreased vision HEENT: YES: Heacaches Respiratory: YES: Cough, Shortness of breath, SOB with excertion Cardiovascular: yes Chest Pain, yes Edema Gastrointestinal: Yes Constipation Genitourinary: YES Other (NOCTURIA) Musculoskeletal: Yes Muscular Weakness Neurological: Yes Weakness Skin: Yes Dry Skin Physical Exam General: Alert, Oriented X3, Cooperative, No acute distress HEENT: Atraumatic, PERRLA, EOMI Lungs: Clear to auscultation Heart: Regular rate, Normal S1, Normal S2 Abdomen: Normal bowel sounds, Soft, No tenderness Extremities: No clubbing Skin: No breakdown Neuro: Normal speech, Cranial nerves 3-12 NL Psych/Mental Status: Mental status NL, Mood NL MUSCULOSKELETAL: No deformity, No swelling Vitals VITALS Vital Signs Date Time Temp Pulse Resp B/P (MAP) Pulse Ox O2 Delivery O2 Flow Rate FiO2 12/04/16 13:00 93 29 109/65 (80) 98 Nasal Cannula 2.5 12/04/16 12:00 98.3 98.3 Labs Labs Laboratory Tests Test 12/03/16 12:49 12/03/16 13:35 12/03/16 20:40 12/04/16 03:00 Nasal Screen MRSA (PCR) Negative (Negative) White Blood Count 5.7 x10^3/uL (4.0-11.0) Red Blood Count 4.49 x10^6/uL (4.30-5.70) Hemoglobin 13.8 g/dL (13.0-17.5) Hematocrit 41.6 % (39.0-53.0) Mean Corpuscular Volume 93 fL (79-100) Mean Corpuscular Hemoglobin 31 pg (25-35) Mean Corpuscular Hemoglobin Concent 33 g/dL (31-37) Red Cell Distribution Width 13.2 % (11.5-14.5) Platelet Count 262 x10^3/uL (140-400) Neutrophils (%) (Auto) 93 % (31-73) Lymphocytes (%) (Auto) 6 % (24-48) Monocytes (%) (Auto) 2 % (0-9) Eosinophils (%) (Auto) 0 % (0-3) Basophils (%) (Auto) 0 % (0-3) Neutrophils # (Auto) 5.3 x10^3uL (1.8-7.7) Lymphocytes # (Auto) 0.3 x10^3/uL (1.0-4.8) Monocytes # (Auto) 0.1 x10^3/uL (0.0-1.1) Eosinophils # (Auto) 0.0 x10^3/uL (0.0-0.7) Basophils # (Auto) 0.0 x10^3/uL (0.0-0.2) Segmented Neutrophils % 75 % (35-66) Band Neutrophils % 16 % (0-9) Lymphocytes % 7 % (24-48) Monocytes % 1 % (0-10) Basophils % 1 % (0-3) Platelet Estimate Adequate (ADEQUATE) Poikilocytosis Slight Activated Partial Thromboplast Time 27 SEC (24-38) Sodium Level 138 mmol/L (136-145) Potassium Level 6.0 mmol/L (3.5-5.1) Chloride Level 102 mmol/L (98-107) Carbon Dioxide Level 23 mmol/L (21-32) Anion Gap 13 (6-14) Blood Urea Nitrogen 34 mg/dL (8-26) Creatinine 2.5 mg/dL (0.7-1.3) Estimated GFR (Cockcroft-Gault) 30.6 BUN/Creatinine Ratio 14 (6-20) Glucose Level 395 mg/dL (70-99) Calcium Level 9.2 mg/dL (8.5-10.1) Magnesium Level 2.1 mg/dL (1.8-2.4) Total Bilirubin 0.7 mg/dL (0.2-1.0) Aspartate Amino Transf (AST/SGOT) 103 U/L (15-37) Alanine Aminotransferase (ALT/SGPT) 27 U/L (16-63) Alkaline Phosphatase 125 U/L (46-116) Troponin I Quantitative 16.481 ng/mL (0.000-0.055) Total Protein 8.1 g/dL (6.4-8.2) Albumin 3.4 g/dL (3.4-5.0) Albumin/Globulin Ratio 0.7 (1.0-1.7) Heparin Anti-Xa Act, Unfractionated 0.49 IU/mL (0.30-0.70) 0.39 IU/mL (0.30-0.70) Test 12/04/16 04:55 12/04/16 11:10 White Blood Count 12.6 x10^3/uL (4.0-11.0) Red Blood Count 4.26 x10^6/uL (4.30-5.70) Hemoglobin 13.1 g/dL (13.0-17.5) Hematocrit 38.5 % (39.0-53.0) Mean Corpuscular Volume 91 fL (79-100) Mean Corpuscular Hemoglobin 31 pg (25-35) Mean Corpuscular Hemoglobin Concent 34 g/dL (31-37) Red Cell Distribution Width 13.6 % (11.5-14.5) Platelet Count 251 x10^3/uL (140-400) Neutrophils (%) (Auto) 88 % (31-73) Lymphocytes (%) (Auto) 4 % (24-48) Monocytes (%) (Auto) 7 % (0-9) Eosinophils (%) (Auto) 0 % (0-3) Basophils (%) (Auto) 0 % (0-3) Neutrophils # (Auto) 11.1 x10^3uL (1.8-7.7) Lymphocytes # (Auto) 0.5 x10^3/uL (1.0-4.8) Monocytes # (Auto) 0.9 x10^3/uL (0.0-1.1) Eosinophils # (Auto) 0.0 x10^3/uL (0.0-0.7) Basophils # (Auto) 0.0 x10^3/uL (0.0-0.2) Sodium Level 136 mmol/L (136-145) Potassium Level 4.8 mmol/L (3.5-5.1) Chloride Level 98 mmol/L (98-107) Carbon Dioxide Level 18 mmol/L (21-32) Anion Gap 20 (6-14) Blood Urea Nitrogen 39 mg/dL (8-26) Creatinine 2.8 mg/dL (0.7-1.3) Estimated GFR (Cockcroft-Gault) 26.9 Glucose Level 375 mg/dL (70-99) Calcium Level 9.4 mg/dL (8.5-10.1) Magnesium Level 1.8 mg/dL (1.8-2.4) Troponin I Quantitative 25.763 ng/mL (0.000-0.055) Glucose (Fingerstick) 448 mg/dL (70-99) Laboratory Tests Test 12/03/16 20:40 12/04/16 03:00 12/04/16 04:55 12/04/16 11:10 Heparin Anti-Xa Act, Unfractionated 0.49 IU/mL (0.30-0.70) 0.39 IU/mL (0.30-0.70) White Blood Count 12.6 x10^3/uL (4.0-11.0) Red Blood Count 4.26 x10^6/uL (4.30-5.70) Hemoglobin 13.1 g/dL (13.0-17.5) Hematocrit 38.5 % (39.0-53.0) Mean Corpuscular Volume 91 fL (79-100) Mean Corpuscular Hemoglobin 31 pg (25-35) Mean Corpuscular Hemoglobin Concent 34 g/dL (31-37) Red Cell Distribution Width 13.6 % (11.5-14.5) Platelet Count 251 x10^3/uL (140-400) Neutrophils (%) (Auto) 88 % (31-73) Lymphocytes (%) (Auto) 4 % (24-48) Monocytes (%) (Auto) 7 % (0-9) Eosinophils (%) (Auto) 0 % (0-3) Basophils (%) (Auto) 0 % (0-3) Neutrophils # (Auto) 11.1 x10^3uL (1.8-7.7) Lymphocytes # (Auto) 0.5 x10^3/uL (1.0-4.8) Monocytes # (Auto) 0.9 x10^3/uL (0.0-1.1) Eosinophils # (Auto) 0.0 x10^3/uL (0.0-0.7) Basophils # (Auto) 0.0 x10^3/uL (0.0-0.2) Sodium Level 136 mmol/L (136-145) Potassium Level 4.8 mmol/L (3.5-5.1) Chloride Level 98 mmol/L (98-107) Carbon Dioxide Level 18 mmol/L (21-32) Anion Gap 20 (6-14) Blood Urea Nitrogen 39 mg/dL (8-26) Creatinine 2.8 mg/dL (0.7-1.3) Estimated GFR (Cockcroft-Gault) 26.9 Glucose Level 375 mg/dL (70-99) Calcium Level 9.4 mg/dL (8.5-10.1) Magnesium Level 1.8 mg/dL (1.8-2.4) Troponin I Quantitative 25.763 ng/mL (0.000-0.055) Glucose (Fingerstick) 448 mg/dL (70-99) Assessment/Plan Assessment/Plan IMP CKD STAGE 3 TO 4 HYPERKALEMIA SEVERE CM ACUTE CHF-SYSTOLIC AMI DM II HTN BPH PLAN LOW FLOW HCO3 GTT HEART CATH PENDING D/W PT POSSIBILITY OF CAN EXPRESSED UNDERSTANDING HOLD CHANELLE-I FOR NOW MAY NEED TO USE OTHER AGENTS TO REDUCE AFTERLOAD CONT ALDACTONE AND LASIX FOR NOW MONITOR LYTES AND ACID BASE BALANCE CONSIDER ANTIBIOTICS WILL ASK ID TO SEE PT LABS IN AM KAMALA KELLY MD Dec 04, 2016 13:50
--- NOTE | 2016-12-04 13:58 | CONS ---
DATE OF CONSULTATION: 12/03/2016 ATTENDING PHYSICIAN: Dr. Najera. REASON FOR CONSULTATION: The patient seen in pulmonary consultation at the request of Dr. Najera for abnormal x-ray and increasing shortness of breath. HISTORY OF PRESENT ILLNESS: The patient is a 76-year-old male woke up in the middle of the night, acutely short of breath with chest discomfort. He was seen in the Emergency Department at [facility]. He normally goes to the [facility]. He was transferred to [facility]. He has had elevated troponin level. He is currently on IV heparin. He was also given IV Lasix. He has had a chest x-ray which revealed bilateral pulmonary infiltrates. I was asked to see him in consultation. The patient smoked 30 years ago. Does not carry a diagnosis of COPD. His echocardiogram recently showed ejection fraction of 15%. I specifically asked me if he knew anything about that, he did not. He does have a history of previous myocardial infarction with valvular replacement. Denies fever, chills, nausea, vomiting, diarrhea. PAST MEDICAL HISTORY: Otherwise remarkable for previous CVA with no residual heart attack, congestive heart failure, coronary artery bypass grafting, valvular replacement, previous coronary stenting. He has had diabetes. ALLERGIES: To ASPIRIN, GABAPENTIN, and TERAZOSIN. SOCIAL HISTORY: He denies any current use of tobacco or alcohol. REVIEW OF SYSTEMS: As indicated above, otherwise, a 10-point system was reviewed and negative. CURRENT MEDICATION: List was reviewed. Please see the MRAD. The patient was given IV Lasix, although he is currently on IV heparin, nebulized treatments. PHYSICAL EXAMINATION: VITAL SIGNS: On examination, he was in the intensive care unit in no respiratory distress, 2 L of oxygen supplementation, saturation above 92%. HEENT: Eyes, the sclerae were nonicteric. NECK: Jugular venous distention was not elevated. No lymphadenopathy. CHEST: Full expansion. LUNGS: Some crackles; otherwise, no wheezes. CARDIOVASCULAR: Regular rate and rhythm with S1, S2, no S3. ABDOMEN: Soft, nontender, nondistended. EXTREMITIES: No clubbing, cyanosis. Minimal edema. NEUROLOGIC: The patient was awake, alert, following commands. A detailed neuro exam was not performed. LABORATORY DATA: Reviewed. White count was normal. Hemoglobin and hematocrit were noted. Troponin was 16.48. BUN and creatinine were elevated. Potassium is slightly elevated. Chest x-ray as indicated above. IMPRESSION: 1. Acute hypoxemic respiratory failure secondary to acute systolic heart failure. 2. Acute on chronic systolic heart failure. 3. Cardiomyopathy, ejection fraction 15%. 4. Coronary artery disease status post coronary artery bypass grafting and valvular heart replacement. 5. Diabetes with complications. 6. Chronic obstructive pulmonary disease, unknown FEV1. 7. Acute renal insufficiency. 8. Elevated troponin, suspect non-ST segment elevation myocardial infarction. 9. Hyperkalemia. 10. Type 2 diabetes, uncontrolled. PLAN: 1. We will recommend continue oxygen supplementation. 2. No need for antibiotics. 3. Consult cardiology, already performed. 4. Monitor renal function. 5. Would recommend initiating diet, no IV fluids. 6. Recommend consulting Nephrology. I do appreciate the privilege in sharing in the patient's care. UMANG HOLBROOK MD DR: ARMINDA/galdino JOB#: [id number] / [id number]
[2016-12-04] MEDS: SODIUM BICARBONATE VIAL 50 MEQ in IV 1/2 NORMAL SALINE 1,000 ML IV SCH (14:47)
--- NOTE | 2016-12-04 15:03 | HP ---
ADMIT DATE: 12/04/2016 HISTORY OF PRESENT ILLNESS: The patient is a 76-year-old -Italian male patient who came to the Emergency Room of [facility] with retrosternal chest pressure, which woke him up from sleep. He apparently took nitroglycerin, which relieved his discomfort and went back to sleep only to be awakened again an hour later with recurrent pain. After 3rd episode, he presented to the Emergency Room. On evaluation, he also complained of shortness of breath, diaphoresis. His pain was again resolved in the Emergency Room after 2 nitroglycerins. In the Emergency Room, he was noted to have mild congestive heart failure, was given 80 mg of IV Lasix and given sublingual nitroglycerin. He also was started on nitro paste. He had another episode of chest pain and diaphoresis while in the Emergency Room that also resolved and was admitted to the ICU of [facility]. His initial cardiac enzymes were slightly elevated at 0.519. He was also noted to have impaired kidney function with a creatinine of 2.2. While at the ICU of [facility], second cardiac enzyme has risen up to 1.017. He did receive nitro paste to chest wall and also furosemide and morphine; however, he continued to have extremely high blood pressure and tachycardia. His heart rate was 115, blood pressure went up to 200/85. His chest x-ray showed that the cardiac silhouette was unremarkable; however, he has prominent appearing bilateral interstitial lung markings. The costophrenic angles, however, are clear and well demarcated and the patient was basically transferred to [facility] ICU for further evaluation by the Cardiology team. PAST MEDICAL HISTORY: Significant for coronary artery disease. He underwent coronary bypass graft surgery x 5 at [facility] in the year of 1999. He also underwent cardiac catheterization at [facility] on 07/30/2014. At that time, he had an ejection fraction on an echocardiogram done on 05/02/2015 of 55%. Other medical problems include chronic diastolic congestive heart failure with premature ventricular complex, type 2 diabetes mellitus, benign prostatic hypertrophy, hypertension, hyperlipidemia, posttraumatic stress disorder, cerebral infarction, mild cognitive impairment, insomnia, environmental allergies, restless legs syndrome. He is also known to have diabetic neuropathy, recurrent falls, chronic constipation. He has chronic kidney disease with proteinuria and biclonal gammopathy. PAST SURGICAL HISTORY: Significant for coronary artery bypass graft surgery. He also had multiple valve replacements. ALLERGIES: HE IS ALLERGIC TO ASPIRIN, GABAPENTIN, AND TERAZOSIN. FAMILY HISTORY: Unremarkable. SOCIAL HISTORY: He is , lives alone, mostly independent. He has 4 children that are not involved in his care. He is an ex-smoker, quit about 30 years ago. He does not drink alcohol or use recreational drugs. MEDICATIONS: He is currently on following medications: He is on albuterol sulfate and ipratropium bromide nebulizer twice a day. He is on amlodipine besylate 10 mg once a day, aspirin 81 mg once a day, buspirone 5 mg once a day, cholecalciferol vitamin D3 1000 International Units once a day. He is also on Aricept 10 mg at bedtime, furosemide 80 mg twice a day. NovoLog insulin 3 times a day; with meals, he takes 16 units. He also is on Lantus insulin 26 units at bedtime. He is on isosorbide mononitrate 120 mg once a day, lisinopril 30 mg once a day, magnesium oxide 400 mg once a day, metoprolol tartrate 10 mg once a day and oxybutynin chloride 10 mg once a day. He is on ropinirole 0.5 mg at bedtime for restless legs syndrome, senna 1 tablet once a day, spironolactone 25 mg once a day, and tamsulosin 0.4 mg at bedtime. REVIEW OF SYSTEMS: As per history of present illness. PHYSICAL EXAMINATION GENERAL: When I examined him today, he was resting slightly propped up in bed, in no apparent respiratory distress, pale. No jaundice, cyanosis, or thyromegaly. No jugular venous distention. No limb edema. VITAL SIGNS: His heart rate was 100, blood pressure 140/86, temperature was 98.5, respiratory rate 22, and oxygen saturation was 90% on 2 liters of oxygen. HEAD, EYES, EARS, NOSE AND THROAT: Normocephalic, atraumatic. NECK: Supple. HEART: Showed normal first and second heart sounds with no gallop, rub or murmur. CHEST: Clear to auscultation. No crepitation or rhonchi. ABDOMEN: Distended, soft, nontender. No guarding or rigidity. No organomegaly with hernial orifices intact. Bowel sounds normal. NEUROLOGIC: He is definitely awake, alert, responding appropriately. Cranial nerves intact. EXTREMITIES: He moves extremities without difficulty, although he is mostly bed bound. His intake was 884, output was 1445. LABORATORY DATA: Her lab work this morning showed a white cell count of 12,600, hemoglobin 13, hematocrit 38, MCV 91, and platelet count 251,000 with a manual differential showed 88% polymorphs and 4% lymphocytes and 7% monocytes. His chemistry showed a serum sodium of 136, potassium 4.8, chloride 98, bicarbonate 18, anion gap of 20, BUN 39, creatinine 2.8. Estimated GFR was 27 mL per minute. His blood sugar was 375 mg/dL. Calcium was 9.4, magnesium was 1.8. His troponin this morning went up to 25.7, total protein was 8.1, albumin was 3.4. His prothrombin time, his aPTT was 27 and he is now on heparin drip. ASSESSMENT: Non-ST segment elevation myocardial infarction; coronary artery disease, status post coronary bypass surgery; acute on chronic systolic congestive heart failure with ejection fraction on an echocardiogram done yesterday was only 10%. Other medical problems includes hypertension, hyperlipidemia, type 2 diabetes mellitus insulin requiring, chronic obstructive pulmonary disease, obstructive sleep apnea, benign prostatic hypertrophy, diabetic neuropathy, chronic kidney disease stage 3, proteinuria, posttraumatic stress disorder. PLAN: To consult the cardiology team as well as the nephrology team and obtain the records from [facility] and decide on further management accordingly. TANVI ROME MD DR: LAURIE/galdino JOB#: [id number] / [id number]
[2016-12-04] MEDS ORDERED: VANCOMYCIN PER PHARMACY MC PRN (16:30)
[2016-12-04] MEDS: PIPERACILLIN/TAZOBACTAM 2.25 GM in IV NORMAL SALINE 50ML 50 ML IV SCH (16:51)
[2016-12-04] MEDS ORDERED: VANCOMYCIN 1.5 GM in IV NORMAL SALINE 500ML BAG 500 ML IV SCH (17:00)
[2016-12-04] MEDS ORDERED: VANCOMYCIN 2 GM in IV NORMAL SALINE 500ML BAG 500 ML IV ONE (17:00)
[2016-12-04] MEDS: TAMSULOSIN 0.4 MG CAP.ER.24H. PO SCH (20:50)
[2016-12-04] MEDS: rOPINIRole 0.25 MG TABLET. PO SCH (20:51)
[2016-12-04] MEDS: INSULIN DETEMIR 300 UNITS/3 ML INSULN.PEN. SQ SCH (20:56)
[2016-12-05] VITALS (25 sets, daily range): BP systolic 86–130; BP diastolic 49–84
[2016-12-05] MEDS: PIPERACILLIN/TAZOBACTAM 2.25 GM in IV NORMAL SALINE 50ML 50 ML IV SCH ×4 (00:32→17:19)
[2016-12-05 05:24] LABS: BASO % 0 % (0-3); EOS % 0 % (0-3); HEMATOCRIT 34.3 % (39.0-53.0); HEMOGLOBIN 11.5 g/dL (13.0-17.5); LYMPH # 0.8 x10^3/uL (1.0-4.8); LYMPH % 11 % (24-48); MEAN CORPUSCULAR HEMOGLOBIN 31 pg (25-35); MEAN CORPUSCULAR HGB CONC 33 g/dL (31-37); MEAN CORPUSCULAR VOLUME 92 fL (79-100); MONO % 12 % (0-9); NEUT % 76 % (31-73); PLATELET COUNT 196 x10^3/uL (140-400); RED BLOOD COUNT 3.75 x10^6/uL (4.30-5.70); RED CELL DISTRIBUTION WIDTH 13.1 % (11.5-14.5); WHITE BLOOD COUNT 7.3 x10^3/uL (4.0-11.0)
[2016-12-05 05:44] LABS: ALBUMIN 2.7 g/dL (3.4-5.0); ALBUMIN/GLOBULIN RATIO 0.6 (1.0-1.7); CALCIUM 8.5 mg/dL (8.5-10.1); CREATININE 2.5 mg/dL (0.7-1.3); GFR 30.6; POTASSIUM 4.7 mmol/L (3.5-5.1); TOTAL BILIRUBIN 0.9 mg/dL (0.2-1.0)
[2016-12-05 05:46] LABS: MAGNESIUM 1.6 mg/dL (1.8-2.4)
[2016-12-05] MEDS: HEPARIN 25,000UTS/500ML PREMIX 500 ML IV PRN (06:33)
--- NOTE | 2016-12-05 07:44 | PDOC ---
Infectious Disease Note Vital Sign Vital Signs Vital Signs Date Time Temp Pulse Resp B/P (MAP) Pulse Ox O2 Delivery O2 Flow Rate FiO2 12/05/16 07:00 92 22 113/60 (77) 97 Nasal Cannula 2.0 12/05/16 04:00 98.1 98.1 Labs Lab Laboratory Tests Test 12/04/16 11:10 12/04/16 16:47 12/04/16 20:25 12/04/16 20:50 Glucose (Fingerstick) 448 mg/dL (70-99) 282 mg/dL (70-99) 160 mg/dL (70-99) Lactic Acid Level 2.4 mmol/L (0.4-2.0) Test 12/05/16 00:10 12/05/16 05:00 Lactic Acid Level 2.2 mmol/L (0.4-2.0) White Blood Count 7.3 x10^3/uL (4.0-11.0) Red Blood Count 3.75 x10^6/uL (4.30-5.70) Hemoglobin 11.5 g/dL (13.0-17.5) Hematocrit 34.3 % (39.0-53.0) Mean Corpuscular Volume 92 fL (79-100) Mean Corpuscular Hemoglobin 31 pg (25-35) Mean Corpuscular Hemoglobin Concent 33 g/dL (31-37) Red Cell Distribution Width 13.1 % (11.5-14.5) Platelet Count 196 x10^3/uL (140-400) Neutrophils (%) (Auto) 76 % (31-73) Lymphocytes (%) (Auto) 11 % (24-48) Monocytes (%) (Auto) 12 % (0-9) Eosinophils (%) (Auto) 0 % (0-3) Basophils (%) (Auto) 0 % (0-3) Neutrophils # (Auto) 5.6 x10^3uL (1.8-7.7) Lymphocytes # (Auto) 0.8 x10^3/uL (1.0-4.8) Monocytes # (Auto) 0.9 x10^3/uL (0.0-1.1) Eosinophils # (Auto) 0.0 x10^3/uL (0.0-0.7) Basophils # (Auto) 0.0 x10^3/uL (0.0-0.2) Heparin Anti-Xa Act, Unfractionated 0.27 IU/mL (0.30-0.70) Sodium Level 137 mmol/L (136-145) Potassium Level 4.7 mmol/L (3.5-5.1) Chloride Level 103 mmol/L (98-107) Carbon Dioxide Level 26 mmol/L (21-32) Anion Gap 8 (6-14) Blood Urea Nitrogen 41 mg/dL (8-26) Creatinine 2.5 mg/dL (0.7-1.3) Estimated GFR (Cockcroft-Gault) 30.6 BUN/Creatinine Ratio 16 (6-20) Glucose Level 213 mg/dL (70-99) Calcium Level 8.5 mg/dL (8.5-10.1) Magnesium Level 1.6 mg/dL (1.8-2.4) Total Bilirubin 0.9 mg/dL (0.2-1.0) Aspartate Amino Transf (AST/SGOT) 81 U/L (15-37) Alanine Aminotransferase (ALT/SGPT) 27 U/L (16-63) Alkaline Phosphatase 82 U/L (46-116) Total Protein 7.0 g/dL (6.4-8.2) Albumin 2.7 g/dL (3.4-5.0) Albumin/Globulin Ratio 0.6 (1.0-1.7) Triglycerides Level 108 mg/dL (0-150) Cholesterol Level 148 mg/dL (0-200) LDL Cholesterol, Calculated 77 mg/dL (0-100) VLDL Cholesterol, Calculated 22 mg/dL (0-40) Non-HDL Cholesterol Calculated 99 mg/dL (0-129) HDL Cholesterol 49 mg/dL (40-60) Cholesterol/HDL Ratio 3.0 Objective Assessment Leukocytosis Pulmonary infiltrate , chf vs pneumonia Acute MD Renal insufficiency DM CHF Plan Plan of Care cont zosyn d/c vanc check culture supportive care TEJAL REGAN MD Dec 05, 2016 07:44
[2016-12-05] MEDS: ASPIRIN ENTERIC COATED 325 MG TABLET.DR. PO SCH (08:45)
[2016-12-05] MEDS: ISOSORBIDE MONONITRATE ER 30 MG TAB.ER.24H PO SCH (08:45)
[2016-12-05] MEDS: busPIRone 5 MG TABLET. PO SCH (08:45)
[2016-12-05] MEDS: FUROSEMIDE 40 MG TABLET. PO SCH ×2 (08:45→17:18)
[2016-12-05] MEDS: MAGNESIUM OXIDE 400 MG TABLET PO SCH (08:45)
[2016-12-05] MEDS: DONEPEZIL HCL 10 MG TABLET. PO SCH (08:45)
[2016-12-05] MEDS: OXYBUTYNIN CHLORIDE 5 MG TABLET PO SCH ×2 (08:45→20:36)
[2016-12-05] MEDS: SPIRONOLACTONE 25 MG TABLET PO SCH (08:46)
[2016-12-05] MEDS: CHOLECALCIFEROL (VITAMIN D3) 1,000 UNIT TABLET PO SCH (08:46)
[2016-12-05] MEDS: ACETYLCYSTEINE 20% ORAL SOLN 600 MG/3 ML SYRINGE. PO SCH (08:46)
[2016-12-05] MEDS: METOPROLOL TART IMMED RELEASE 50 MG TABLET. PO SCH ×2 (08:46→20:35)
[2016-12-05] MEDS: amLODIPine BESYLATE 5 MG TABLET PO SCH (08:46)
[2016-12-05] MEDS: ANTI-COAG MONITOR BY PHARMACY. MC PRN (08:47)
[2016-12-05] MEDS: INSULIN ASPART 300 UNITS/3 ML INSULN.PEN SQ SCH ×3 (08:50→17:24)
[2016-12-05] MEDS ORDERED: MAGNESIUM SULFATE 2GM 50 ML IV ONE (09:00)
[2016-12-05] MEDS: IPRATRPIUM/ALBUTEROL 0.5/2.5MG 3 ML NEBU. NEB SCH ×4 (09:12→19:41)
--- NOTE | 2016-12-05 09:29 | PDOC ---
PULMONARY PROGRESS NOTES Subjective PT FEELS BETTER LESS SOA SITTING IN CHAIR NO CHEST PAIN Vitals Vital Signs Date Time Temp Pulse Resp B/P (MAP) Pulse Ox O2 Delivery O2 Flow Rate FiO2 12/05/16 09:14 100 Nasal Cannula 2.0 12/05/16 09:00 100.0 88 28 130/71 (90) 100.0 ROS: No Nausea, No Chest Pain, No Abdominal Pain Lungs: Clear Cardiovascular: S1, S2 Abdomen: Soft Neuro Exam: Alert Extremities: No Edema Skin: Warm Labs Laboratory Tests Test 12/03/16 12:49 12/03/16 13:35 12/03/16 20:40 12/04/16 03:00 Nasal Screen MRSA (PCR) Negative (Negative) White Blood Count 5.7 x10^3/uL (4.0-11.0) Red Blood Count 4.49 x10^6/uL (4.30-5.70) Hemoglobin 13.8 g/dL (13.0-17.5) Hematocrit 41.6 % (39.0-53.0) Mean Corpuscular Volume 93 fL (79-100) Mean Corpuscular Hemoglobin 31 pg (25-35) Mean Corpuscular Hemoglobin Concent 33 g/dL (31-37) Red Cell Distribution Width 13.2 % (11.5-14.5) Platelet Count 262 x10^3/uL (140-400) Neutrophils (%) (Auto) 93 % (31-73) Lymphocytes (%) (Auto) 6 % (24-48) Monocytes (%) (Auto) 2 % (0-9) Eosinophils (%) (Auto) 0 % (0-3) Basophils (%) (Auto) 0 % (0-3) Neutrophils # (Auto) 5.3 x10^3uL (1.8-7.7) Lymphocytes # (Auto) 0.3 x10^3/uL (1.0-4.8) Monocytes # (Auto) 0.1 x10^3/uL (0.0-1.1) Eosinophils # (Auto) 0.0 x10^3/uL (0.0-0.7) Basophils # (Auto) 0.0 x10^3/uL (0.0-0.2) Segmented Neutrophils % 75 % (35-66) Band Neutrophils % 16 % (0-9) Lymphocytes % 7 % (24-48) Monocytes % 1 % (0-10) Basophils % 1 % (0-3) Platelet Estimate Adequate (ADEQUATE) Poikilocytosis Slight Activated Partial Thromboplast Time 27 SEC (24-38) Sodium Level 138 mmol/L (136-145) Potassium Level 6.0 mmol/L (3.5-5.1) Chloride Level 102 mmol/L (98-107) Carbon Dioxide Level 23 mmol/L (21-32) Anion Gap 13 (6-14) Blood Urea Nitrogen 34 mg/dL (8-26) Creatinine 2.5 mg/dL (0.7-1.3) Estimated GFR (Cockcroft-Gault) 30.6 BUN/Creatinine Ratio 14 (6-20) Glucose Level 395 mg/dL (70-99) Calcium Level 9.2 mg/dL (8.5-10.1) Magnesium Level 2.1 mg/dL (1.8-2.4) Total Bilirubin 0.7 mg/dL (0.2-1.0) Aspartate Amino Transf (AST/SGOT) 103 U/L (15-37) Alanine Aminotransferase (ALT/SGPT) 27 U/L (16-63) Alkaline Phosphatase 125 U/L (46-116) Troponin I Quantitative 16.481 ng/mL (0.000-0.055) Total Protein 8.1 g/dL (6.4-8.2) Albumin 3.4 g/dL (3.4-5.0) Albumin/Globulin Ratio 0.7 (1.0-1.7) Heparin Anti-Xa Act, Unfractionated 0.49 IU/mL (0.30-0.70) 0.39 IU/mL (0.30-0.70) Test 12/04/16 04:55 12/04/16 11:10 12/04/16 16:47 12/04/16 20:25 White Blood Count 12.6 x10^3/uL (4.0-11.0) Red Blood Count 4.26 x10^6/uL (4.30-5.70) Hemoglobin 13.1 g/dL (13.0-17.5) Hematocrit 38.5 % (39.0-53.0) Mean Corpuscular Volume 91 fL (79-100) Mean Corpuscular Hemoglobin 31 pg (25-35) Mean Corpuscular Hemoglobin Concent 34 g/dL (31-37) Red Cell Distribution Width 13.6 % (11.5-14.5) Platelet Count 251 x10^3/uL (140-400) Neutrophils (%) (Auto) 88 % (31-73) Lymphocytes (%) (Auto) 4 % (24-48) Monocytes (%) (Auto) 7 % (0-9) Eosinophils (%) (Auto) 0 % (0-3) Basophils (%) (Auto) 0 % (0-3) Neutrophils # (Auto) 11.1 x10^3uL (1.8-7.7) Lymphocytes # (Auto) 0.5 x10^3/uL (1.0-4.8) Monocytes # (Auto) 0.9 x10^3/uL (0.0-1.1) Eosinophils # (Auto) 0.0 x10^3/uL (0.0-0.7) Basophils # (Auto) 0.0 x10^3/uL (0.0-0.2) Sodium Level 136 mmol/L (136-145) Potassium Level 4.8 mmol/L (3.5-5.1) Chloride Level 98 mmol/L (98-107) Carbon Dioxide Level 18 mmol/L (21-32) Anion Gap 20 (6-14) Blood Urea Nitrogen 39 mg/dL (8-26) Creatinine 2.8 mg/dL (0.7-1.3) Estimated GFR (Cockcroft-Gault) 26.9 Glucose Level 375 mg/dL (70-99) Calcium Level 9.4 mg/dL (8.5-10.1) Magnesium Level 1.8 mg/dL (1.8-2.4) Troponin I Quantitative 25.763 ng/mL (0.000-0.055) Glucose (Fingerstick) 448 mg/dL (70-99) 282 mg/dL (70-99) Lactic Acid Level 2.4 mmol/L (0.4-2.0) Test 12/04/16 20:50 12/05/16 00:10 12/05/16 05:00 Glucose (Fingerstick) 160 mg/dL (70-99) Lactic Acid Level 2.2 mmol/L (0.4-2.0) White Blood Count 7.3 x10^3/uL (4.0-11.0) Red Blood Count 3.75 x10^6/uL (4.30-5.70) Hemoglobin 11.5 g/dL (13.0-17.5) Hematocrit 34.3 % (39.0-53.0) Mean Corpuscular Volume 92 fL (79-100) Mean Corpuscular Hemoglobin 31 pg (25-35) Mean Corpuscular Hemoglobin Concent 33 g/dL (31-37) Red Cell Distribution Width 13.1 % (11.5-14.5) Platelet Count 196 x10^3/uL (140-400) Neutrophils (%) (Auto) 76 % (31-73) Lymphocytes (%) (Auto) 11 % (24-48) Monocytes (%) (Auto) 12 % (0-9) Eosinophils (%) (Auto) 0 % (0-3) Basophils (%) (Auto) 0 % (0-3) Neutrophils # (Auto) 5.6 x10^3uL (1.8-7.7) Lymphocytes # (Auto) 0.8 x10^3/uL (1.0-4.8) Monocytes # (Auto) 0.9 x10^3/uL (0.0-1.1) Eosinophils # (Auto) 0.0 x10^3/uL (0.0-0.7) Basophils # (Auto) 0.0 x10^3/uL (0.0-0.2) Heparin Anti-Xa Act, Unfractionated 0.27 IU/mL (0.30-0.70) Sodium Level 137 mmol/L (136-145) Potassium Level 4.7 mmol/L (3.5-5.1) Chloride Level 103 mmol/L (98-107) Carbon Dioxide Level 26 mmol/L (21-32) Anion Gap 8 (6-14) Blood Urea Nitrogen 41 mg/dL (8-26) Creatinine 2.5 mg/dL (0.7-1.3) Estimated GFR (Cockcroft-Gault) 30.6 BUN/Creatinine Ratio 16 (6-20) Glucose Level 213 mg/dL (70-99) Calcium Level 8.5 mg/dL (8.5-10.1) Magnesium Level 1.6 mg/dL (1.8-2.4) Total Bilirubin 0.9 mg/dL (0.2-1.0) Aspartate Amino Transf (AST/SGOT) 81 U/L (15-37) Alanine Aminotransferase (ALT/SGPT) 27 U/L (16-63) Alkaline Phosphatase 82 U/L (46-116) Total Protein 7.0 g/dL (6.4-8.2) Albumin 2.7 g/dL (3.4-5.0) Albumin/Globulin Ratio 0.6 (1.0-1.7) Triglycerides Level 108 mg/dL (0-150) Cholesterol Level 148 mg/dL (0-200) LDL Cholesterol, Calculated 77 mg/dL (0-100) VLDL Cholesterol, Calculated 22 mg/dL (0-40) Non-HDL Cholesterol Calculated 99 mg/dL (0-129) HDL Cholesterol 49 mg/dL (40-60) Cholesterol/HDL Ratio 3.0 Laboratory Tests Test 12/04/16 11:10 12/04/16 16:47 12/04/16 20:25 12/04/16 20:50 Glucose (Fingerstick) 448 mg/dL (70-99) 282 mg/dL (70-99) 160 mg/dL (70-99) Lactic Acid Level 2.4 mmol/L (0.4-2.0) Test 12/05/16 00:10 12/05/16 05:00 Lactic Acid Level 2.2 mmol/L (0.4-2.0) White Blood Count 7.3 x10^3/uL (4.0-11.0) Red Blood Count 3.75 x10^6/uL (4.30-5.70) Hemoglobin 11.5 g/dL (13.0-17.5) Hematocrit 34.3 % (39.0-53.0) Mean Corpuscular Volume 92 fL (79-100) Mean Corpuscular Hemoglobin 31 pg (25-35) Mean Corpuscular Hemoglobin Concent 33 g/dL (31-37) Red Cell Distribution Width 13.1 % (11.5-14.5) Platelet Count 196 x10^3/uL (140-400) Neutrophils (%) (Auto) 76 % (31-73) Lymphocytes (%) (Auto) 11 % (24-48) Monocytes (%) (Auto) 12 % (0-9) Eosinophils (%) (Auto) 0 % (0-3) Basophils (%) (Auto) 0 % (0-3) Neutrophils # (Auto) 5.6 x10^3uL (1.8-7.7) Lymphocytes # (Auto) 0.8 x10^3/uL (1.0-4.8) Monocytes # (Auto) 0.9 x10^3/uL (0.0-1.1) Eosinophils # (Auto) 0.0 x10^3/uL (0.0-0.7) Basophils # (Auto) 0.0 x10^3/uL (0.0-0.2) Heparin Anti-Xa Act, Unfractionated 0.27 IU/mL (0.30-0.70) Sodium Level 137 mmol/L (136-145) Potassium Level 4.7 mmol/L (3.5-5.1) Chloride Level 103 mmol/L (98-107) Carbon Dioxide Level 26 mmol/L (21-32) Anion Gap 8 (6-14) Blood Urea Nitrogen 41 mg/dL (8-26) Creatinine 2.5 mg/dL (0.7-1.3) Estimated GFR (Cockcroft-Gault) 30.6 BUN/Creatinine Ratio 16 (6-20) Glucose Level 213 mg/dL (70-99) Calcium Level 8.5 mg/dL (8.5-10.1) Magnesium Level 1.6 mg/dL (1.8-2.4) Total Bilirubin 0.9 mg/dL (0.2-1.0) Aspartate Amino Transf (AST/SGOT) 81 U/L (15-37) Alanine Aminotransferase (ALT/SGPT) 27 U/L (16-63) Alkaline Phosphatase 82 U/L (46-116) Total Protein 7.0 g/dL (6.4-8.2) Albumin 2.7 g/dL (3.4-5.0) Albumin/Globulin Ratio 0.6 (1.0-1.7) Triglycerides Level 108 mg/dL (0-150) Cholesterol Level 148 mg/dL (0-200) LDL Cholesterol, Calculated 77 mg/dL (0-100) VLDL Cholesterol, Calculated 22 mg/dL (0-40) Non-HDL Cholesterol Calculated 99 mg/dL (0-129) HDL Cholesterol 49 mg/dL (40-60) Cholesterol/HDL Ratio 3.0 Medications Active Scripts Medications Dose Route/Sig Max Daily Dose Days Date Category Dose Instructions Duoneb 0.5-3(2.5) Mg/3 Ml (Albuterol/Ipratropium) 3 Ml Ampul.neb 3 Ml NEB PRN BID PRN 12/03/16 Reported NITROGLYCERIN SubLingual (Nitroglycerin) 0.4 Mg Tab.subl 0.4 Mg SL PRN Q5MIN PRN 12/03/16 Reported Buspirone Hcl 5 Mg Tablet 1 Tab PO DAILY 12/03/16 Reported Oxybutynin Chloride Er (Oxybutynin Chloride) 10 Mg Tab.er.24 1 Tab PO DAILY 12/03/16 Reported Novolog Flexpen (Insulin Aspart) 100 Unit/1 Ml Insuln.pen 16 Unit SQ TIDWMEALS 12/03/16 Reported Tamsulosin Hcl 0.4 Mg Cap.er.24h 1 Cap PO HS 12/03/16 Reported Lisinopril 20 Mg Tablet 1.5 Tab PO BID 12/03/16 Reported [lyric evolocumab] 140 Mg SQ UD 12/03/16 Reported every 2 months Magnesium Oxide 400 Mg Tablet 400 Mg PO DAILY 12/03/16 Reported Isosorbide Mononitrate Er (Isosorbide Mononitrate) 60 Mg Tab.er.24h 120 Mg PO DAILY 12/03/16 Reported Requip (Ropinirole Hcl) 0.5 Mg Tablet 0.5 Mg PO HS 12/03/16 Reported Donepezil Hcl 10 Mg Tablet 1 Tab PO DAILY 12/03/16 Reported Vitamin D3 (Cholecalciferol (Vitamin D3)) 1,000 Unit Tablet 2 Tab PO DAILY 12/03/16 Reported Spironolactone 25 Mg Tablet 1 Tab PO DAILY 12/03/16 Reported Aspirin 81 Mg Tab.chew 1 Tab PO DAILY 12/03/16 Reported Novolin R (Insulin Regular, Human) 100 Unit/1 Ml Vial 100 Unit IJ 12/03/16 Reported Lantus Solostar (Insulin Glargine,Hum.rec.anlog) 100 Unit/1 Ml Insuln.pen 26 Unit SQ QHS 12/03/16 Reported Amlodipine Besylate 10 Mg Tablet 5 Mg PO HS 12/03/16 Reported Senokot (Sennosides) 8.6 Mg Tablet 8.6 Mg PO PRN DAILY PRN 12/03/16 Reported Metoprolol Tartrate 100 Mg Tablet 0.5 Tab PO BID 12/03/16 Reported Furosemide 40 Mg Tablet 2 Tab PO [id number] 12/03/16 Reported Impression . 1. Acute hypoxemic respiratory failure secondary to acute systolic heart failure. 2. Acute on chronic systolic heart failure. 3. Cardiomyopathy, ejection fraction 15%. 4. Coronary artery disease status post coronary artery bypass grafting and Valvular heart replacement. 5. Diabetes with complications. 6. Chronic obstructive pulmonary disease, unknown FEV1. 7. Acute renal insufficiency. 8. Elevated troponin, suspect non-ST segment elevation myocardial infarction. 9. Hyperkalemia. 10. Type 2 diabetes, uncontrolled. Plan . UP TO CHAIR 02, PT LESS SOA CARD NOTE APPRECIATED WILL FOLLOW RENAL INPUT 02 NO NEED FOR ANTIBX UMANG HOLBROOK MD Dec 05, 2016 09:29
--- NOTE | 2016-12-05 11:13 | PDOC ---
Renal-Progress Notes Subjective Notes Notes NO SOB, FEELING BETTER History of Present Illness Hx of present illness STABLE Vitals Vitals Vital Signs Date Time Temp Pulse Resp B/P (MAP) Pulse Ox O2 Delivery O2 Flow Rate FiO2 12/05/16 10:00 87 26 97/54 (68) 97 Nasal Cannula 2.0 12/05/16 09:00 100.0 100.0 Weight Weight [ ] I.O. Intake and Output Intake and Output 12/06/16 07:00 Intake Total 240 ml Output Total 160 ml Balance 80 ml Intake Oral 240 ml Output Urine Total 160 ml Labs Labs Laboratory Tests Test 12/04/16 16:47 12/04/16 20:25 12/04/16 20:50 12/05/16 00:10 Glucose (Fingerstick) 282 mg/dL (70-99) 160 mg/dL (70-99) Lactic Acid Level 2.4 mmol/L (0.4-2.0) 2.2 mmol/L (0.4-2.0) Test 12/05/16 05:00 White Blood Count 7.3 x10^3/uL (4.0-11.0) Red Blood Count 3.75 x10^6/uL (4.30-5.70) Hemoglobin 11.5 g/dL (13.0-17.5) Hematocrit 34.3 % (39.0-53.0) Mean Corpuscular Volume 92 fL (79-100) Mean Corpuscular Hemoglobin 31 pg (25-35) Mean Corpuscular Hemoglobin Concent 33 g/dL (31-37) Red Cell Distribution Width 13.1 % (11.5-14.5) Platelet Count 196 x10^3/uL (140-400) Neutrophils (%) (Auto) 76 % (31-73) Lymphocytes (%) (Auto) 11 % (24-48) Monocytes (%) (Auto) 12 % (0-9) Eosinophils (%) (Auto) 0 % (0-3) Basophils (%) (Auto) 0 % (0-3) Neutrophils # (Auto) 5.6 x10^3uL (1.8-7.7) Lymphocytes # (Auto) 0.8 x10^3/uL (1.0-4.8) Monocytes # (Auto) 0.9 x10^3/uL (0.0-1.1) Eosinophils # (Auto) 0.0 x10^3/uL (0.0-0.7) Basophils # (Auto) 0.0 x10^3/uL (0.0-0.2) Heparin Anti-Xa Act, Unfractionated 0.27 IU/mL (0.30-0.70) Sodium Level 137 mmol/L (136-145) Potassium Level 4.7 mmol/L (3.5-5.1) Chloride Level 103 mmol/L (98-107) Carbon Dioxide Level 26 mmol/L (21-32) Anion Gap 8 (6-14) Blood Urea Nitrogen 41 mg/dL (8-26) Creatinine 2.5 mg/dL (0.7-1.3) Estimated GFR (Cockcroft-Gault) 30.6 BUN/Creatinine Ratio 16 (6-20) Glucose Level 213 mg/dL (70-99) Calcium Level 8.5 mg/dL (8.5-10.1) Magnesium Level 1.6 mg/dL (1.8-2.4) Total Bilirubin 0.9 mg/dL (0.2-1.0) Aspartate Amino Transf (AST/SGOT) 81 U/L (15-37) Alanine Aminotransferase (ALT/SGPT) 27 U/L (16-63) Alkaline Phosphatase 82 U/L (46-116) Total Protein 7.0 g/dL (6.4-8.2) Albumin 2.7 g/dL (3.4-5.0) Albumin/Globulin Ratio 0.6 (1.0-1.7) Triglycerides Level 108 mg/dL (0-150) Cholesterol Level 148 mg/dL (0-200) LDL Cholesterol, Calculated 77 mg/dL (0-100) VLDL Cholesterol, Calculated 22 mg/dL (0-40) Non-HDL Cholesterol Calculated 99 mg/dL (0-129) HDL Cholesterol 49 mg/dL (40-60) Cholesterol/HDL Ratio 3.0 Physical Exam General Appearance: no apparent distress Skin: warm, dry Respiratory: decreased breath sounds Heart: S1S2 Abdomen: soft Genitourinary: bladder flat Neurology: alert, oriented Assessment Assessment IMP CKD STAGE 3 TO 4 HYPERKALEMIA-RESOLVED SEVERE CM WITH EF OF 15% DM II HTN BPH - ON FLOMAX PLAN CONT THE HCO3 GTT ONLY AT 50 CC/HR CONT LASIX TRIAL SHORT ACTING LOW DOSE CHANELLE-I TO REDUCE AFTERLOAD STOP HIS NORVASC AVOID RESUMING K SPARING DIURETIC FOR NOW KAMALA KELLY MD Dec 05, 2016 11:13
[2016-12-05] MEDS: LISINOPRIL 5 MG TABLET. PO SCH (12:00)
--- NOTE | 2016-12-05 15:01 | PDOC ---
GERONIMO TINOCO DROP HAMMER SET UP OPERATOR 12/05/16 1501: CARDIO Progress Notes Date and Time Date of Service 12/05/16 Time of Evaluation 1010 Subjective Subjective: No Chest Pain, No shortness of breath Vitals Vitals Vital Signs Date Time Temp Pulse Resp B/P (MAP) Pulse Ox O2 Delivery O2 Flow Rate FiO2 12/05/16 14:27 80 25 91/58 (69) 100 Nasal Cannula 2.0 12/05/16 12:59 98.8 98.8 Weight Weight [ ] Input and Output Intake and Output Intake and Output 12/06/16 07:00 Intake Total 580 ml Output Total 320 ml Balance 260 ml Intake Oral 480 ml IV Total 100 ml Output Urine Total 320 ml Laboratory Labs Laboratory Tests Test 12/04/16 16:47 12/04/16 20:25 12/04/16 20:50 12/05/16 00:10 Glucose (Fingerstick) 282 mg/dL (70-99) 160 mg/dL (70-99) Lactic Acid Level 2.4 mmol/L (0.4-2.0) 2.2 mmol/L (0.4-2.0) Test 12/05/16 05:00 12/05/16 12:17 12/05/16 12:30 White Blood Count 7.3 x10^3/uL (4.0-11.0) Red Blood Count 3.75 x10^6/uL (4.30-5.70) Hemoglobin 11.5 g/dL (13.0-17.5) Hematocrit 34.3 % (39.0-53.0) Mean Corpuscular Volume 92 fL (79-100) Mean Corpuscular Hemoglobin 31 pg (25-35) Mean Corpuscular Hemoglobin Concent 33 g/dL (31-37) Red Cell Distribution Width 13.1 % (11.5-14.5) Platelet Count 196 x10^3/uL (140-400) Neutrophils (%) (Auto) 76 % (31-73) Lymphocytes (%) (Auto) 11 % (24-48) Monocytes (%) (Auto) 12 % (0-9) Eosinophils (%) (Auto) 0 % (0-3) Basophils (%) (Auto) 0 % (0-3) Neutrophils # (Auto) 5.6 x10^3uL (1.8-7.7) Lymphocytes # (Auto) 0.8 x10^3/uL (1.0-4.8) Monocytes # (Auto) 0.9 x10^3/uL (0.0-1.1) Eosinophils # (Auto) 0.0 x10^3/uL (0.0-0.7) Basophils # (Auto) 0.0 x10^3/uL (0.0-0.2) Heparin Anti-Xa Act, Unfractionated 0.27 IU/mL (0.30-0.70) 0.64 IU/mL (0.30-0.70) Sodium Level 137 mmol/L (136-145) Potassium Level 4.7 mmol/L (3.5-5.1) Chloride Level 103 mmol/L (98-107) Carbon Dioxide Level 26 mmol/L (21-32) Anion Gap 8 (6-14) Blood Urea Nitrogen 41 mg/dL (8-26) Creatinine 2.5 mg/dL (0.7-1.3) Estimated GFR (Cockcroft-Gault) 30.6 BUN/Creatinine Ratio 16 (6-20) Glucose Level 213 mg/dL (70-99) Calcium Level 8.5 mg/dL (8.5-10.1) Magnesium Level 1.6 mg/dL (1.8-2.4) Total Bilirubin 0.9 mg/dL (0.2-1.0) Aspartate Amino Transf (AST/SGOT) 81 U/L (15-37) Alanine Aminotransferase (ALT/SGPT) 27 U/L (16-63) Alkaline Phosphatase 82 U/L (46-116) Total Protein 7.0 g/dL (6.4-8.2) Albumin 2.7 g/dL (3.4-5.0) Albumin/Globulin Ratio 0.6 (1.0-1.7) Triglycerides Level 108 mg/dL (0-150) Cholesterol Level 148 mg/dL (0-200) LDL Cholesterol, Calculated 77 mg/dL (0-100) VLDL Cholesterol, Calculated 22 mg/dL (0-40) Non-HDL Cholesterol Calculated 99 mg/dL (0-129) HDL Cholesterol 49 mg/dL (40-60) Cholesterol/HDL Ratio 3.0 Glucose (Fingerstick) 160 mg/dL (70-99) Physical Exam HEENT: Neck Supple W Full Motion Chest: Symmetric LUNGS: Other (diminished bases) Heart: S1S2, RRR Abdomen: Soft N/T Extremities: Negative Lela's Sign, Other (trace bilateral LE edema ) Neurology: alert, follow commands Assessment Assessment 1. Non-ST elevated myocardial infarction. Patient is pain-free. Troponin has increased to 25. Echocardiogram shows an ejection fraction of 15%. Preliminary report from the patient's most recent heart catheterization from 2 years ago shows a 70% left main, an occluded proximal LAD, 99% proximal left circumflex and an occluded right coronary artery. A CARRINGTON graft to the LAD was patent with a 70% distal lesion at the anastomosis. A vein graft to diagonal was patent. A vein graft to the obtuse marginal was closed. A vein graft to the right coronary artery was closed. Ejection fraction reportedly from April 2015 with 55% with mild mitral regurgitation. The patient is pain-free as above. We' ll continue on anticoagulation and baseline medications including beta blockers. Patient has chronic kidney disease with a creatinine yesterday of 2.5 and a potassium of 6.0. Potassium has normalized stable and his creatinine has increased to 2.8. We will continue medical treatment at this time. We'll obtain catheterization report from 2 years ago. We will consider future catheterization after stabilization of the patient's kidney function and further discussion with him regarding the risks and benefits of intervention. 2. Acute on chronic systolic heart failure. Fluid status mildly improved today. Ejection fraction of 15%. Renal consult has been obtained. 3. Diabetes mellitus as per the primary service. 4. Hypertension. We'll adjust medications as needed. 6. Reported hyperlipidemia. We'll check lipid panel. [facility]. [facility] a [facility] of a cerebral infarction and mixed dementia. We' ll continue to monitor. 8. Possible sleep apnea. We'll attempt to obtain further records. Thank you for allowing us to participate in the care of your patient. KADIE FONTANA MD 12/05/16 1543: CARDIO Progress Notes Other Comments Patient seen and examined The patient looks and feels better today. Status post non-ST elevated myocardial infarction.. Ejection fraction at 15%. Now pain-free. 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 At this time will continue on present medications. We 'll obtain full report of the patient's previous catheterization. We'll continue on heparin. Tentatively planned cardiac catheterization for tomorrow. This was discussed with the patient. GERONIMO TINOCO APRN Dec 05, 2016 15:01 KADIE FONTANA MD Dec 05, 2016 15:43
[2016-12-05] MEDS: SODIUM BICARBONATE VIAL 50 MEQ in IV 1/2 NORMAL SALINE 1,000 ML IV SCH (17:19)
[2016-12-05] MEDS: rOPINIRole 0.25 MG TABLET. PO SCH (20:35)
[2016-12-05] MEDS: INSULIN DETEMIR 300 UNITS/3 ML INSULN.PEN. SQ SCH (20:37)
[2016-12-05] MEDS: TAMSULOSIN 0.4 MG CAP.ER.24H. PO SCH (20:38)
[2016-12-06] VITALS (16 sets, daily range): BP systolic 101–140; BP diastolic 46–78
[2016-12-06] MEDS: PIPERACILLIN/TAZOBACTAM 2.25 GM in IV NORMAL SALINE 50ML 50 ML IV SCH ×4 (00:27→17:39)
[2016-12-06] MEDS: HEPARIN 25,000UTS/500ML PREMIX 500 ML IV PRN ×2 (00:27→17:55)
--- NOTE | 2016-12-06 01:00 | CONS ---
DATE OF CONSULTATION: 12/05/2016 REQUESTING PHYSICIAN: Dr. Campos. ATTENDING PHYSICIAN: Dr. Najera. REASON FOR CONSULTATION: Pneumonia. HISTORY OF PRESENT ILLNESS: This is a 76-year-old -[place] gentleman with a history of coronary artery disease, who presented to [facility] with retrosternal chest pressure that woke him up from the sleep. The patient took nitro and he got better. He went to sleep and again that happened, again woke up. He eventually ended up in the ER and then transferred here. The patient was found to have a significant troponin elevation. The patient is on heparin drip. The patient also is becoming bradycardic. He had low-grade fever and white count is up and the chest x-ray suggesting CHF versus pneumonia with perihilar prominent right upper lobe and right perihilar infiltrate. The patient is comfortable as the chest pain has improved. I started him on vancomycin and Zosyn yesterday, the later part of the day, when they called me. The patient denies any nausea, vomiting or diarrhea. Denies any chest pain, shortness of breath, abdominal pain, urinary symptoms or bowel symptoms at this stage. PAST MEDICAL HISTORY: Positive for coronary artery disease with coronary artery bypass grafting done in the past. The patient does have diabetes, hypertension, renal insufficiency, congestive heart failure, hyperlipidemia, PTSD, diabetic neuropathy and valve replacement done. SOCIAL HISTORY: Negative for smoking, alcohol or illicit drug use. ALLERGIES: LISTED ALLERGIC TO TERAZOSIN AND GABAPENTIN. REVIEW OF SYSTEMS: As per HPI. All other systems reviewed are negative. PHYSICAL EXAMINATION: GENERAL: On examination, alert and oriented gentleman, not in any distress. VITAL SIGNS: Stable. The patient's T-max is 99.5. HEENT: Anicteric. NECK: Supple. No JVP, no lymphadenopathy. LUNGS: Clear. HEART: S1, S2 regular. ABDOMEN: Benign. EXTREMITIES: No edema or cyanosis. SKIN EXAMINATION: Unremarkable. NEUROLOGIC: The patient is neurologically intact. LABORATORY DATA: White count yesterday was 12.6, today 7.3; platelets are normal. BUN 41, creatinine 2.6. Lactic acid was up to 2.4. Troponin up to 25. MRSA screen negative. Chest x-ray showing right upper lobe and perihilar infiltrate. IMPRESSION: 1. Pulmonary infiltrate, pneumonia versus unilateral congestive heart failure. 2. Leukocytosis. 3. Lactic acidosis with possible early sepsis. 4. Acute myocardial infarction. 5. Renal insufficiency. 6. Diabetes. 7. Congestive heart failure. RECOMMENDATION: Would continue Zosyn. We will discontinue vancomycin. We will check cultures. Supportive care and continue to follow. Thank you very much, Dr. Campos, for giving me the opportunity to participate in this patient's care. TEJAL REGAN MD DR: JESS/galdino JOB#: [id number] / [id number]
[2016-12-06 03:33] LABS: CALCIUM 8.6 mg/dL (8.5-10.1); CREATININE 2.7 mg/dL (0.7-1.3); MAGNESIUM 1.9 mg/dL (1.8-2.4); PHOSPHORUS 4.2 mg/dL (2.6-4.7); POTASSIUM 4.2 mmol/L (3.5-5.1)
--- NOTE | 2016-12-06 06:12 | PN ---
DATE: 12/05/2016 SUBJECTIVE: The patient is sitting propped up in his bed, in no apparent respiratory distress. On questioning him, he denied any complaint. The nursing staff denied any complaint and said he had an uneventful night. He was seen in consultation by the Nephrology team, Cardiology as well as the crew chief, and apparently the reports of the cardiac catheterization from the [facility] are still awaited; however, the plan is for him to be catheterized tomorrow. PHYSICAL EXAMINATION: GENERAL: When I examined him this morning, he looked well and was clearly in no apparent respiratory distress, pale, not jaundiced or cyanosed. No thyromegaly. No jugular venous distention. No limb edema. VITAL SIGNS: His heart rate was 88, blood pressure was 130/71, temperature was 100, respiratory rate was 28 and oxygen saturation was 98% on 2 liters of oxygen by nasal cannula. HEAD, EYES, EARS, NOSE AND THROAT: Normocephalic, atraumatic. NECK: Supple. HEART: Showed normal first and second heart sounds with no gallop, rub or murmur. CHEST: Clear to auscultation. No crepitation or rhonchi. ABDOMEN: Distended, soft, nontender. No guarding or rigidity. No organomegaly. All hernial orifices intact. Bowel sounds normal. NEUROLOGIC: He was awake, alert, responding appropriately. Cranial nerves intact. He moves extremities without difficulty. His intake over the last 24 hours was 2386. Output was 1740. LABORATORY WORK: As of this morning showed a white cell count 7300, hemoglobin 11.5, hematocrit 34.3, MCV 92 and platelet count of 196,000 with normal manual differential. His chemistry showed a serum sodium 137, potassium 4.7, chloride 103, bicarbonate 26, anion gap of 8, BUN 41, creatinine 2.5. Estimated GFR was 30 mL per minute. His glucose was 213. Calcium was 8.5. Lactic acid is down to 2.2. Magnesium is 1.6. Total bilirubin, AST, ALT and alkaline phosphatase were normal. Total protein was 7, albumin 2.7. His triglycerides were 108. Total cholesterol 148. LDL was 77. VLDL was 22, and HDL cholesterol was 49. The ratio was 3. He continues to be on a heparin drip. ASSESSMENT: 1. Ith-HK-vncrkmf elevation myocardial infarction. 2. Jbuxu-tq-waodelo systolic congestive heart failure with an ejection fraction done on a most recent echocardiogram about 15%. 3. Coronary artery disease, status post coronary artery bypass graft surgery. 4. Hypertension. 5. Hyperlipidemia. 6. Type 2 diabetes mellitus -- insulin requiring. 7. Chronic obstructive pulmonary disease. 8. Obstructive sleep apnea. 9. Benign prostatic hypertrophy. 10. Diabetic neuropathy. 11. Urvow-hg-qlhnrjo kidney disease, stage 3. 12. Proteinuria. 13. Posttraumatic stress disorder. PLAN: To continue with current medication. His magnesium was replenished, and he received 2 grams of magnesium sulfate. Continue to monitor his blood sugar and adjust insulin as needed. Continue with IV antibiotic in the form of piperacillin and tazobactam. Continue with sodium bicarbonate as recommended by the Infectious Disease and metoprolol, isosorbide mononitrate, spironolactone and furosemide as per Cardiology recommendation. TANVI ROME MD DR: LAURIE/galdino JOB#: [id number] / [id number]
--- NOTE | 2016-12-06 08:00 | PDOC ---
Infectious Disease Note Subjective Subjective pt feeling fine ROS ROS GEN: Denies fevers, chills, sweats HEENT: Denies blurred vision, sore throat CV: Denies chest pain RESP: Denies shortness of air, cough GI: Denies n/v/d NEURO: Denies confusion, dizziness MSK: Denies weakness, joint pain/swelling Vital Sign Vital Signs Vital Signs Date Time Temp Pulse Resp B/P (MAP) Pulse Ox O2 Delivery O2 Flow Rate FiO2 12/06/16 06:00 84 24 120/70 (87) 96 Nasal Cannula 2.0 12/06/16 04:00 98.5 98.5 Physical Exam PHYSICAL EXAM GENERAL: NAD, Alert HEENT: PERRL, OC/OP NECK: Supple, no JVD, no LN LUNGS: Clear HEART: S1S2, no gallop, no murmur ABD: Soft, NT, no organomegaly, no rebound EXT: No edema, no cyanosis OPERATIONS INTELLIGENCE: Alert, oriented x 3, no focal neurologic deficit SKIN: No rash IV: ok Labs Lab Laboratory Tests Test 12/05/16 12:17 12/05/16 12:30 12/05/16 16:46 12/05/16 19:30 Glucose (Fingerstick) 160 mg/dL (70-99) 110 mg/dL (70-99) Heparin Anti-Xa Act, Unfractionated 0.64 IU/mL (0.30-0.70) 0.37 IU/mL (0.30-0.70) Test 12/05/16 20:34 12/06/16 03:00 12/06/16 07:10 Glucose (Fingerstick) 177 mg/dL (70-99) Sodium Level 137 mmol/L (136-145) Potassium Level 4.2 mmol/L (3.5-5.1) Chloride Level 101 mmol/L (98-107) Carbon Dioxide Level 28 mmol/L (21-32) Anion Gap 8 (6-14) Blood Urea Nitrogen 45 mg/dL (8-26) Creatinine 2.7 mg/dL (0.7-1.3) Estimated GFR (Cockcroft-Gault) 28.0 Glucose Level 202 mg/dL (70-99) Calcium Level 8.6 mg/dL (8.5-10.1) Phosphorus Level 4.2 mg/dL (2.6-4.7) Magnesium Level 1.9 mg/dL (1.8-2.4) Heparin Anti-Xa Act, Unfractionated 0.22 IU/mL (0.30-0.70) Micro culture neg Objective Assessment Leukocytosis Pulmonary infiltrate , chf vs pneumonia Acute AK Renal insufficiency DM CHF Plan Plan of Care cont zosyn check culture supportive care TEJAL REGAN MD Dec 06, 2016 08:00
--- NOTE | 2016-12-06 09:19 | PDOC ---
PULMONARY PROGRESS NOTES Subjective NO MORE PAIN NO INCREASE SOA Vitals Vital Signs Date Time Temp Pulse Resp B/P (MAP) Pulse Ox O2 Delivery O2 Flow Rate FiO2 12/06/16 06:00 84 24 120/70 (87) 96 Nasal Cannula 2.0 12/06/16 04:00 98.5 98.5 ROS: No Nausea, No Chest Pain, No Abdominal Pain Lungs: Clear Cardiovascular: S1, S2 Abdomen: Soft Neuro Exam: Alert Extremities: No Edema Skin: Warm Labs Laboratory Tests Test 12/04/16 11:10 12/04/16 16:47 12/04/16 20:25 12/04/16 20:50 Glucose (Fingerstick) 448 mg/dL (70-99) 282 mg/dL (70-99) 160 mg/dL (70-99) Lactic Acid Level 2.4 mmol/L (0.4-2.0) Test 12/05/16 00:10 12/05/16 05:00 12/05/16 12:17 12/05/16 12:30 Lactic Acid Level 2.2 mmol/L (0.4-2.0) White Blood Count 7.3 x10^3/uL (4.0-11.0) Red Blood Count 3.75 x10^6/uL (4.30-5.70) Hemoglobin 11.5 g/dL (13.0-17.5) Hematocrit 34.3 % (39.0-53.0) Mean Corpuscular Volume 92 fL (79-100) Mean Corpuscular Hemoglobin 31 pg (25-35) Mean Corpuscular Hemoglobin Concent 33 g/dL (31-37) Red Cell Distribution Width 13.1 % (11.5-14.5) Platelet Count 196 x10^3/uL (140-400) Neutrophils (%) (Auto) 76 % (31-73) Lymphocytes (%) (Auto) 11 % (24-48) Monocytes (%) (Auto) 12 % (0-9) Eosinophils (%) (Auto) 0 % (0-3) Basophils (%) (Auto) 0 % (0-3) Neutrophils # (Auto) 5.6 x10^3uL (1.8-7.7) Lymphocytes # (Auto) 0.8 x10^3/uL (1.0-4.8) Monocytes # (Auto) 0.9 x10^3/uL (0.0-1.1) Eosinophils # (Auto) 0.0 x10^3/uL (0.0-0.7) Basophils # (Auto) 0.0 x10^3/uL (0.0-0.2) Heparin Anti-Xa Act, Unfractionated 0.27 IU/mL (0.30-0.70) 0.64 IU/mL (0.30-0.70) Sodium Level 137 mmol/L (136-145) Potassium Level 4.7 mmol/L (3.5-5.1) Chloride Level 103 mmol/L (98-107) Carbon Dioxide Level 26 mmol/L (21-32) Anion Gap 8 (6-14) Blood Urea Nitrogen 41 mg/dL (8-26) Creatinine 2.5 mg/dL (0.7-1.3) Estimated GFR (Cockcroft-Gault) 30.6 BUN/Creatinine Ratio 16 (6-20) Glucose Level 213 mg/dL (70-99) Calcium Level 8.5 mg/dL (8.5-10.1) Magnesium Level 1.6 mg/dL (1.8-2.4) Total Bilirubin 0.9 mg/dL (0.2-1.0) Aspartate Amino Transf (AST/SGOT) 81 U/L (15-37) Alanine Aminotransferase (ALT/SGPT) 27 U/L (16-63) Alkaline Phosphatase 82 U/L (46-116) Total Protein 7.0 g/dL (6.4-8.2) Albumin 2.7 g/dL (3.4-5.0) Albumin/Globulin Ratio 0.6 (1.0-1.7) Triglycerides Level 108 mg/dL (0-150) Cholesterol Level 148 mg/dL (0-200) LDL Cholesterol, Calculated 77 mg/dL (0-100) VLDL Cholesterol, Calculated 22 mg/dL (0-40) Non-HDL Cholesterol Calculated 99 mg/dL (0-129) HDL Cholesterol 49 mg/dL (40-60) Cholesterol/HDL Ratio 3.0 Glucose (Fingerstick) 160 mg/dL (70-99) Test 12/05/16 16:46 12/05/16 19:30 12/05/16 20:34 12/06/16 03:00 Glucose (Fingerstick) 110 mg/dL (70-99) 177 mg/dL (70-99) Heparin Anti-Xa Act, Unfractionated 0.37 IU/mL (0.30-0.70) Sodium Level 137 mmol/L (136-145) Potassium Level 4.2 mmol/L (3.5-5.1) Chloride Level 101 mmol/L (98-107) Carbon Dioxide Level 28 mmol/L (21-32) Anion Gap 8 (6-14) Blood Urea Nitrogen 45 mg/dL (8-26) Creatinine 2.7 mg/dL (0.7-1.3) Estimated GFR (Cockcroft-Gault) 28.0 Glucose Level 202 mg/dL (70-99) Calcium Level 8.6 mg/dL (8.5-10.1) Phosphorus Level 4.2 mg/dL (2.6-4.7) Magnesium Level 1.9 mg/dL (1.8-2.4) Test 12/06/16 07:10 12/06/16 08:51 Heparin Anti-Xa Act, Unfractionated 0.22 IU/mL (0.30-0.70) Glucose (Fingerstick) 187 mg/dL (70-99) Laboratory Tests Test 12/05/16 12:17 12/05/16 12:30 12/05/16 16:46 12/05/16 19:30 Glucose (Fingerstick) 160 mg/dL (70-99) 110 mg/dL (70-99) Heparin Anti-Xa Act, Unfractionated 0.64 IU/mL (0.30-0.70) 0.37 IU/mL (0.30-0.70) Test 12/05/16 20:34 12/06/16 03:00 12/06/16 07:10 12/06/16 08:51 Glucose (Fingerstick) 177 mg/dL (70-99) 187 mg/dL (70-99) Sodium Level 137 mmol/L (136-145) Potassium Level 4.2 mmol/L (3.5-5.1) Chloride Level 101 mmol/L (98-107) Carbon Dioxide Level 28 mmol/L (21-32) Anion Gap 8 (6-14) Blood Urea Nitrogen 45 mg/dL (8-26) Creatinine 2.7 mg/dL (0.7-1.3) Estimated GFR (Cockcroft-Gault) 28.0 Glucose Level 202 mg/dL (70-99) Calcium Level 8.6 mg/dL (8.5-10.1) Phosphorus Level 4.2 mg/dL (2.6-4.7) Magnesium Level 1.9 mg/dL (1.8-2.4) Heparin Anti-Xa Act, Unfractionated 0.22 IU/mL (0.30-0.70) Medications Active Scripts Medications Dose Route/Sig Max Daily Dose Days Date Category Dose Instructions Duoneb 0.5-3(2.5) Mg/3 Ml (Albuterol/Ipratropium) 3 Ml Ampul.neb 3 Ml NEB PRN BID PRN 12/03/16 Reported NITROGLYCERIN SubLingual (Nitroglycerin) 0.4 Mg Tab.subl 0.4 Mg SL PRN Q5MIN PRN 12/03/16 Reported Buspirone Hcl 5 Mg Tablet 1 Tab PO DAILY 12/03/16 Reported Oxybutynin Chloride Er (Oxybutynin Chloride) 10 Mg Tab.er.24 1 Tab PO DAILY 12/03/16 Reported Novolog Flexpen (Insulin Aspart) 100 Unit/1 Ml Insuln.pen 16 Unit SQ TIDWMEALS 12/03/16 Reported Tamsulosin Hcl 0.4 Mg Cap.er.24h 1 Cap PO HS 12/03/16 Reported Lisinopril 20 Mg Tablet 1.5 Tab PO BID 12/03/16 Reported [lyric evolocumab] 140 Mg SQ UD 12/03/16 Reported every 2 months Magnesium Oxide 400 Mg Tablet 400 Mg PO DAILY 12/03/16 Reported Isosorbide Mononitrate Er (Isosorbide Mononitrate) 60 Mg Tab.er.24h 120 Mg PO DAILY 12/03/16 Reported Requip (Ropinirole Hcl) 0.5 Mg Tablet 0.5 Mg PO HS 12/03/16 Reported Donepezil Hcl 10 Mg Tablet 1 Tab PO DAILY 12/03/16 Reported Vitamin D3 (Cholecalciferol (Vitamin D3)) 1,000 Unit Tablet 2 Tab PO DAILY 12/03/16 Reported Spironolactone 25 Mg Tablet 1 Tab PO DAILY 12/03/16 Reported Aspirin 81 Mg Tab.chew 1 Tab PO DAILY 12/03/16 Reported Novolin R (Insulin Regular, Human) 100 Unit/1 Ml Vial 100 Unit IJ 12/03/16 Reported Lantus Solostar (Insulin Glargine,Hum.rec.anlog) 100 Unit/1 Ml Insuln.pen 26 Unit SQ QHS 12/03/16 Reported Amlodipine Besylate 10 Mg Tablet 5 Mg PO HS 12/03/16 Reported Senokot (Sennosides) 8.6 Mg Tablet 8.6 Mg PO PRN DAILY PRN 12/03/16 Reported Metoprolol Tartrate 100 Mg Tablet 0.5 Tab PO BID 12/03/16 Reported Furosemide 40 Mg Tablet 2 Tab PO [id number] 12/03/16 Reported Impression . 1. Acute hypoxemic respiratory failure secondary to acute systolic heart failure. 2. Acute on chronic systolic heart failure. 3. Cardiomyopathy, ejection fraction 15%. 4. Coronary artery disease status post coronary artery bypass grafting and Valvular heart replacement. 5. Diabetes with complications. 6. Chronic obstructive pulmonary disease, unknown FEV1. 7. Acute renal insufficiency. 8. Elevated troponin, suspect non-ST segment elevation myocardial infarction. 9. Hyperkalemia. 10. Type 2 diabetes, uncontrolled. Plan . UP TO CHAIR 02, PT LESS SOA FOLLOW CARD INPUT WILL FOLLOW RENAL INPUT 02 NO NEED FOR ANTIBX UMANG HOLBROOK MD Dec 06, 2016 09:19
[2016-12-06] MEDS: IPRATRPIUM/ALBUTEROL 0.5/2.5MG 3 ML NEBU. NEB SCH ×4 (09:21→20:02)
[2016-12-06] MEDS: DONEPEZIL HCL 10 MG TABLET. PO SCH (09:40)
[2016-12-06] MEDS: LISINOPRIL 5 MG TABLET. PO SCH (09:41)
[2016-12-06] MEDS: MAGNESIUM OXIDE 400 MG TABLET PO SCH (09:41)
[2016-12-06] MEDS: ASPIRIN ENTERIC COATED 325 MG TABLET.DR. PO SCH (09:41)
[2016-12-06] MEDS: CHOLECALCIFEROL (VITAMIN D3) 1,000 UNIT TABLET PO SCH (09:41)
[2016-12-06] MEDS: SPIRONOLACTONE 25 MG TABLET PO SCH (09:41)
[2016-12-06] MEDS: FUROSEMIDE 40 MG TABLET. PO SCH ×2 (09:42→13:40)
[2016-12-06] MEDS: OXYBUTYNIN CHLORIDE 5 MG TABLET PO SCH ×2 (09:42→21:39)
[2016-12-06] MEDS: busPIRone 5 MG TABLET. PO SCH (09:42)
[2016-12-06] MEDS: METOPROLOL TART IMMED RELEASE 50 MG TABLET. PO SCH ×2 (09:42→21:44)
[2016-12-06] MEDS: ISOSORBIDE MONONITRATE ER 30 MG TAB.ER.24H PO SCH (09:43)
[2016-12-06] MEDS: INSULIN ASPART 300 UNITS/3 ML INSULN.PEN SQ SCH ×3 (09:44→17:46)
--- NOTE | 2016-12-06 11:36 | PDOC ---
Renal-Progress Notes Subjective Notes Notes NO NEW COMPLAINTS History of Present Illness Hx of present illness STABLE Vitals Vitals Vital Signs Date Time Temp Pulse Resp B/P (MAP) Pulse Ox O2 Delivery O2 Flow Rate FiO2 12/06/16 09:43 88 129/74 12/06/16 09:21 98 Nasal Cannula 2.0 12/06/16 09:00 26 12/06/16 08:00 98.7 98.7 Weight Weight [ ] I.O. Intake and Output Intake and Output 12/07/16 07:00 Intake Total 360 ml Output Total 300 ml Balance 60 ml Intake Oral 360 ml Output Urine Total 300 ml Labs Labs Laboratory Tests Test 12/05/16 12:17 12/05/16 12:30 12/05/16 16:46 12/05/16 19:30 Glucose (Fingerstick) 160 mg/dL (70-99) 110 mg/dL (70-99) Heparin Anti-Xa Act, Unfractionated 0.64 IU/mL (0.30-0.70) 0.37 IU/mL (0.30-0.70) Test 12/05/16 20:34 12/06/16 03:00 12/06/16 07:10 12/06/16 08:51 Glucose (Fingerstick) 177 mg/dL (70-99) 187 mg/dL (70-99) Sodium Level 137 mmol/L (136-145) Potassium Level 4.2 mmol/L (3.5-5.1) Chloride Level 101 mmol/L (98-107) Carbon Dioxide Level 28 mmol/L (21-32) Anion Gap 8 (6-14) Blood Urea Nitrogen 45 mg/dL (8-26) Creatinine 2.7 mg/dL (0.7-1.3) Estimated GFR (Cockcroft-Gault) 28.0 Glucose Level 202 mg/dL (70-99) Calcium Level 8.6 mg/dL (8.5-10.1) Phosphorus Level 4.2 mg/dL (2.6-4.7) Magnesium Level 1.9 mg/dL (1.8-2.4) Heparin Anti-Xa Act, Unfractionated 0.22 IU/mL (0.30-0.70) Micro Micro Microbiology 12/04/16 Blood Culture - Preliminary, Resulted NO GROWTH AFTER 1 DAY Review of Systems Constitutional: yes: weakness, alert, oriented Ears/Nose/Throat: Yes: no symptom reported Eyes: Yes: no symptom reported Cardiovascular: Yes edema Gastrointestional: Yes: no symptom reported Genitourinary: Yes: no symptom reported Musculoskeletal: Yes: muscle stiffness Skin: Yes no symptom reported Endocrine: Yes: no symptom reported Physical Exam General Appearance: no apparent distress Skin: warm, dry Respiratory: decreased breath sounds Heart: S1S2 Abdomen: soft Genitourinary: bladder flat Neurology: alert, follow commands Assessment Assessment IMP CKD STAGE 3 TO 4 HYPERKALEMIA-RESOLVED SEVERE CM WITH EF OF 15% DM II HTN BPH - ON FLOMAX PLAN STOP IVF'S CONT LASIX CONT WITH HIS CHANELLE-I AVOID RESUMING K SPARING DIURETIC FOR NOW MAY END UP NEEDING DIALYSIS KAMALA KELLY MD Dec 06, 2016 11:36
[2016-12-06] MEDS: ANTI-COAG MONITOR BY PHARMACY. MC PRN ×2 (14:10→14:13)
--- NOTE | 2016-12-06 14:54 | PDOC ---
CARDIO Progress Notes Date and Time Date of Service 12/06/16 Time of Evaluation 1310 Subjective Subjective: No Chest Pain, No shortness of breath Vitals Vitals Vital Signs Date Time Temp Pulse Resp B/P (MAP) Pulse Ox O2 Delivery O2 Flow Rate FiO2 12/06/16 12:33 98 Nasal Cannula 2.0 12/06/16 12:00 99.4 96 22 101/46 (64) 99.4 Weight Weight [ ] Input and Output Intake and Output Intake and Output 12/07/16 07:00 Intake Total 360 ml Output Total 450 ml Balance -90 ml Intake Oral 360 ml Output Urine Total 450 ml Laboratory Labs Laboratory Tests Test 12/05/16 16:46 12/05/16 19:30 12/05/16 20:34 12/06/16 03:00 Glucose (Fingerstick) 110 mg/dL (70-99) 177 mg/dL (70-99) Heparin Anti-Xa Act, Unfractionated 0.37 IU/mL (0.30-0.70) Sodium Level 137 mmol/L (136-145) Potassium Level 4.2 mmol/L (3.5-5.1) Chloride Level 101 mmol/L (98-107) Carbon Dioxide Level 28 mmol/L (21-32) Anion Gap 8 (6-14) Blood Urea Nitrogen 45 mg/dL (8-26) Creatinine 2.7 mg/dL (0.7-1.3) Estimated GFR (Cockcroft-Gault) 28.0 Glucose Level 202 mg/dL (70-99) Calcium Level 8.6 mg/dL (8.5-10.1) Phosphorus Level 4.2 mg/dL (2.6-4.7) Magnesium Level 1.9 mg/dL (1.8-2.4) Test 12/06/16 07:10 12/06/16 08:51 12/06/16 12:02 Heparin Anti-Xa Act, Unfractionated 0.22 IU/mL (0.30-0.70) Glucose (Fingerstick) 187 mg/dL (70-99) 187 mg/dL (70-99) Microbiology Micro Microbiology 12/04/16 Blood Culture - Preliminary, Resulted NO GROWTH AFTER 1 DAY Review of Systems Constitutional: yes: weakness, alert, oriented Ears/Nose/Throat: Yes: no symptom reported Eyes: Yes: no symptom reported Cardiovascular: Yes edema Gastrointestional: Yes: no symptom reported Genitourinary: Yes: no symptom reported Musculoskeletal: Yes: muscle stiffness Skin: Yes no symptom reported Endocrine: Yes: no symptom reported Physical Exam HEENT: Neck Supple W Full Motion Chest: Symmetric LUNGS: Other (diminished bases) Heart: S1S2, RRR Abdomen: Soft N/T Extremities: Negative Lela's Sign, Other (trace bilateral LE edema ) Neurology: alert, follow commands Assessment Assessment 1. NSTEMI 2. CAD s/p CABG; recent cardiac cath as noted below 3. Acute on chronic systolic heart failure with ICM; LVEF 15%; better compensated 4. Acute on chronic respiratory failure 5. Hypertension; controlled 6. Diabetes 7. Hyperlipidemia; statin 8. NORMA and CKD 9. H/o CVA Recommendations Continue heparin Renal optimization. Consider addition of milrinone therapy Monitor over weekend with consideration of coronary angiogram on Friday depending upon symptomatology and renal status Supportive care. [facility] records obtained - 03/21/16 Echo 1. Moderated reduced LV systolic function with an EF of 32% 2. Akinetic segments primary involve the inferolateral and lateral segments 3. No significant valvular abnormalities - 03/22/16 Coronary angiogram Coronary angiography: Right dominant coronary system Left main: there was a 30% stenosis Proximal LAD: there was a 100% stenosis. Distal LAD: There was an 80% in the very apical segment. 1st Diagonal: There was a 100% stenosis. Proximal Circ: There was a 95% stenosis 1st OM: The distal vessel was supplied by extensive collaterals from the 1st diagonal. There was a 100% stenosis Proximal RCA: There was a 100% stenosis Right PDA: The distal vessel was supplied by limited collaterals for septal branches of the LAD Right posterolateral segment: The distal vessel was supplied by moderate collaterals from the left AV groove artery. Graft to the mid LAD: The graft was a medium to sized [place]ARR[place]. Graft is patent Graft to first diagonal: The graft was a medium sized SVG from the ascending aorta. Graft angiography showed mild degeneration. Graft is patent Severe the [place] 3VD. Right dominant coronary system. Minimal CAD of the LM trunk. WATER RESOURCES TECHNICAL OFFICER of the proximal LAD. Patent CARRINGTON to mid LAD. There is diffuse severe apical LAD CAD that is not amenable to PCI. Patent SVG to 1st diagonal branch. WATER RESOURCES TECHNICAL OFFICER of the RCA. No RCA graft was identified. The right PDA and right PL branches receive collaterals from LAD septals and LCx respectively. WATER RESOURCES TECHNICAL OFFICER of the SVG to OM1. OM1 receives extensive collaterals from D1. All the CAD appears to be chronic and not acute. Likely elevated troponin is from HTN urgency. Recommend medical therapy. Recommendations 1. DAPT 2. Aggressive BP control 3. Aggressive CAD risk factor modification 4. Cardiac rehab GERONIMO TINOCO APRN Dec 06, 2016 14:53
[2016-12-06] MEDS: INSULIN DETEMIR 300 UNITS/3 ML INSULN.PEN. SQ SCH (21:00)
[2016-12-06] MEDS ORDERED: ATORVASTATIN CALCIUM 20 MG TABLET PO SCH (21:00)
[2016-12-06] MEDS: TAMSULOSIN 0.4 MG CAP.ER.24H. PO SCH (21:38)
[2016-12-06] MEDS: rOPINIRole 0.25 MG TABLET. PO SCH (21:39)
[2016-12-07] MEDS: PIPERACILLIN/TAZOBACTAM 2.25 GM in IV NORMAL SALINE 50ML 50 ML IV SCH ×2 (01:03→06:03)
--- NOTE | 2016-12-07 03:32 | PN ---
DATE: 12/06/2016 SUBJECTIVE: The patient is resting almost flat in bed in no apparent distress. He denied any chest pain or shortness of breath. Apparently, he was kept n.p.o. from midnight last night for the plan to do cardiac catheterization that was canceled. PHYSICAL EXAMINATION: GENERAL: When I examined him this morning, he looked well and was clearly in no apparent respiratory distress, slightly pale, not jaundiced or cyanosed, no thyromegaly. No jugular venous distention. No limb edema. VITAL SIGNS: His heart rate was 88, blood pressure was 129/74, temperature was 98.5, respiratory rate was 24 and oxygen saturation was 98% on 2 liters of oxygen. HEAD, EYES, EARS, NOSE AND THROAT: Showed normocephalic and atraumatic. NECK: Supple. HEART: Showed normal first and second heart sounds with no gallop, rub or murmur. CHEST: Clear to auscultation. No crepitation or rhonchi. ABDOMEN: Distended, soft, nontender. NEUROLOGIC: He was awake, alert, responding appropriately. Cranial nerves intact. He moves extremities without difficulty, although he is mostly bed bound. His intake over the last 24 hours was 2850, output was 1700. LABORATORY DATA: As of this morning, his serum sodium was 137, potassium 4.2, chloride 101, bicarbonate 28, anion gap of 8, BUN 45, creatinine 2.7, estimated GFR was 28 mL per minute. His glucose was 202. Calcium was 8.6, phosphorus 4.2. Magnesium was 1.9. His white cell count was 7300, hemoglobin 11.5, hematocrit 34, MCV 92 and platelet count of 196,000. ASSESSMENT: 1. Soh-PR-hyfjddf elevation myocardial infarction. 2. Nrikx-nz-viuusmh systolic congestive heart failure with an ejection fraction that dropped down to 15%. 3. Coronary artery disease, status post coronary artery bypass graft surgery. 4. Hypertension, it seems to be well controlled. 5. Hyperlipidemia. 6. Type 2 diabetes, which is insulin requiring, seems to be well controlled. 7. Chronic obstructive pulmonary disease. 8. Obstructive sleep apnea. 9. Benign prostatic hypertrophy. 10. Diabetic peripheral neuropathy. 11. Dyocj-zz-cweuqii kidney injury. 12. Proteinuria. 13. Posttraumatic stress disorder. PLAN: To continue with current medication. I will consult Physical and Occupational Therapy. We will continue with IV antibiotic. There are no plans for Cardiology intervention. We will consult Physical and Occupational Therapy and decide on further management accordingly. TANVI ROME MD DR: LAURIE/galdino JOB#: [id number] / [id number]
[2016-12-07 03:34] VITALS: BP 143/80
--- NOTE | 2016-12-07 06:47 | PDOC ---
Infectious Disease Note Subjective Subjective pt feeling fine. Asking when he can go home ROS ROS GEN: Denies fevers, chills, sweats HEENT: Denies blurred vision, sore throat CV: Denies chest pain RESP: Denies shortness of air, cough GI: Denies n/v/d NEURO: Denies confusion, dizziness MSK: Denies weakness, joint pain/swelling Vital Sign Vital Signs Vital Signs Date Time Temp Pulse Resp B/P (MAP) Pulse Ox O2 Delivery O2 Flow Rate FiO2 12/07/16 03:34 97.9 80 23 143/80 (101) 100 Nasal Cannula 2.0 97.9 Physical Exam PHYSICAL EXAM GENERAL: NAD, Alert HEENT: PERRL, OC/OP - clear NECK: Supple, no JVD, no LN LUNGS: Clear HEART: S1S2, no gallop, no murmur ABD: Soft, NT, obese no rebound Bah EXT: No edema, no cyanosis PRINCIPAL LAW CLERK: Alert, oriented x 3, no focal neurologic deficit SKIN: No rash IV: ok Labs Lab Laboratory Tests Test 12/06/16 07:10 12/06/16 08:51 12/06/16 12:02 12/06/16 15:00 Heparin Anti-Xa Act, Unfractionated 0.22 IU/mL (0.30-0.70) 0.25 IU/mL (0.30-0.70) Glucose (Fingerstick) 187 mg/dL (70-99) 187 mg/dL (70-99) Test 12/06/16 16:15 12/06/16 20:50 12/07/16 01:45 Glucose (Fingerstick) 107 mg/dL (70-99) 65 mg/dL (70-99) Heparin Anti-Xa Act, Unfractionated 0.41 IU/mL (0.30-0.70) Objective Assessment Leukocytosis - better Pulmonary infiltrate , chf vs pneumonia Acute AR Renal insufficiency DM CHF Plan Plan of Care [facility] supportive care JETT LEWIS MD Dec 07, 2016 06:47
[2016-12-07 06:57] LABS: CALCIUM 8.6 mg/dL (8.5-10.1); CREATININE 2.6 mg/dL (0.7-1.3); GFR 29.3; POTASSIUM 3.9 mmol/L (3.5-5.1)
[2016-12-07 07:00] VITALS: BP 122/64
[2016-12-07] MEDS: IPRATRPIUM/ALBUTEROL 0.5/2.5MG 3 ML NEBU. NEB SCH ×3 (07:34→16:00)
[2016-12-07] MEDS ORDERED: METOPROLOL SUCC 24HR ER 100 MG TAB.ER.24H. PO SCH (09:00)
[2016-12-07] MEDS: LISINOPRIL 5 MG TABLET. PO SCH (09:07)
[2016-12-07] MEDS: FUROSEMIDE 40 MG TABLET. PO SCH (09:07)
[2016-12-07] MEDS: OXYBUTYNIN CHLORIDE 5 MG TABLET PO SCH (09:08)
[2016-12-07] MEDS: CHOLECALCIFEROL (VITAMIN D3) 1,000 UNIT TABLET PO SCH (09:08)
[2016-12-07] MEDS: busPIRone 5 MG TABLET. PO SCH (09:08)
[2016-12-07] MEDS: DONEPEZIL HCL 10 MG TABLET. PO SCH (09:08)
[2016-12-07] MEDS: MAGNESIUM OXIDE 400 MG TABLET PO SCH (09:08)
[2016-12-07] MEDS: ASPIRIN ENTERIC COATED 325 MG TABLET.DR. PO SCH (09:08)
[2016-12-07] MEDS: ISOSORBIDE MONONITRATE ER 30 MG TAB.ER.24H PO SCH (09:09)
[2016-12-07] MEDS: INSULIN ASPART 300 UNITS/3 ML INSULN.PEN SQ SCH ×2 (09:13→12:43)
[2016-12-07] MEDS: HEPARIN 25,000UTS/500ML PREMIX 500 ML IV PRN (09:59)
[2016-12-07 11:00] VITALS: BP 116/63
--- NOTE | 2016-12-07 11:20 | PDOC ---
SUE LEMON POTATO PANCAKE FRIER 12/07/16 1120: PROGRESS NOTES Subjective Subjective "ready to go home", denies chest pain, dyspnea or palpitations. He reports ambulating without problems. Objective Objective Vital Signs Date Time Temp Pulse Resp B/P (MAP) Pulse Ox O2 Delivery O2 Flow Rate FiO2 12/07/16 09:09 82 122/64 12/07/16 07:53 Nasal Cannula 2.0 12/07/16 07:34 99 12/07/16 07:00 97.4 22 97.4 Intake and Output 12/08/16 07:00 Intake Total 200 ml Balance 200 ml Intake Oral 200 ml Physical Exam Abdomen: Normal bowel sounds, Soft, No tenderness Heart: Regular rate, Normal S1, Normal S2 Extremities: No cyanosis, Other (trace edema, palpable pulses) General: Alert, Oriented X3, Cooperative, No acute distress Lungs: Clear to auscultation Neck: No JVD Neuro: Normal speech Psych/Mental Status: Mental status NL, Mood NL Assessment Assessment 1. Severe 3 vessel coronary artery disease s/p NSTEMI - Continue medical mgmt with close follow up. Consider repeat cardiac cath if anginal symptoms. 2. Severe ICM with EF 15% - continue medical therapy. Would benefit from life vest / AICD for prevention of SCD. Revisit at follow up. 3. acute on chronic systolic heart failure - compensated currently. home with med adjustments and close follow up in 1 week with our office or Bridge Worker Apprentice at the [facility]. 4. CKD stage 3-4, Cr essentially stable. Need nephrology follow up. 5. hypertension - well controlled currently on medical therapy. 6. hyperlipidemia - continue statin 7. DM per PCP Comment Review of Relevant I have reviewed the following items yomi (where applicable) has been applied. Labs Laboratory Tests Test 12/05/16 12:17 12/05/16 12:30 12/05/16 16:46 12/05/16 19:30 Glucose (Fingerstick) 160 mg/dL (70-99) 110 mg/dL (70-99) Heparin Anti-Xa Act, Unfractionated 0.64 IU/mL (0.30-0.70) 0.37 IU/mL (0.30-0.70) Test 12/05/16 20:34 12/06/16 03:00 12/06/16 07:10 12/06/16 08:51 Glucose (Fingerstick) 177 mg/dL (70-99) 187 mg/dL (70-99) Sodium Level 137 mmol/L (136-145) Potassium Level 4.2 mmol/L (3.5-5.1) Chloride Level 101 mmol/L (98-107) Carbon Dioxide Level 28 mmol/L (21-32) Anion Gap 8 (6-14) Blood Urea Nitrogen 45 mg/dL (8-26) Creatinine 2.7 mg/dL (0.7-1.3) Estimated GFR (Cockcroft-Gault) 28.0 Glucose Level 202 mg/dL (70-99) Calcium Level 8.6 mg/dL (8.5-10.1) Phosphorus Level 4.2 mg/dL (2.6-4.7) Magnesium Level 1.9 mg/dL (1.8-2.4) Heparin Anti-Xa Act, Unfractionated 0.22 IU/mL (0.30-0.70) Test 12/06/16 12:02 12/06/16 15:00 12/06/16 16:15 12/06/16 20:50 Glucose (Fingerstick) 187 mg/dL (70-99) 107 mg/dL (70-99) 65 mg/dL (70-99) Heparin Anti-Xa Act, Unfractionated 0.25 IU/mL (0.30-0.70) Test 12/07/16 01:45 12/07/16 06:00 12/07/16 08:16 12/07/16 09:20 Heparin Anti-Xa Act, Unfractionated 0.41 IU/mL (0.30-0.70) 0.35 IU/mL (0.30-0.70) Sodium Level 136 mmol/L (136-145) Potassium Level 3.9 mmol/L (3.5-5.1) Chloride Level 100 mmol/L (98-107) Carbon Dioxide Level 28 mmol/L (21-32) Anion Gap 8 (6-14) Blood Urea Nitrogen 40 mg/dL (8-26) Creatinine 2.6 mg/dL (0.7-1.3) Estimated GFR (Cockcroft-Gault) 29.3 Glucose Level 208 mg/dL (70-99) Calcium Level 8.6 mg/dL (8.5-10.1) Magnesium Level 2.0 mg/dL (1.8-2.4) Glucose (Fingerstick) 206 mg/dL (70-99) Test 12/07/16 10:34 Glucose (Fingerstick) 273 mg/dL (70-99) Laboratory Tests Test 12/06/16 12:02 12/06/16 15:00 12/06/16 16:15 12/06/16 20:50 Glucose (Fingerstick) 187 mg/dL (70-99) 107 mg/dL (70-99) 65 mg/dL (70-99) Heparin Anti-Xa Act, Unfractionated 0.25 IU/mL (0.30-0.70) Test 12/07/16 01:45 12/07/16 06:00 12/07/16 08:16 12/07/16 09:20 Heparin Anti-Xa Act, Unfractionated 0.41 IU/mL (0.30-0.70) 0.35 IU/mL (0.30-0.70) Sodium Level 136 mmol/L (136-145) Potassium Level 3.9 mmol/L (3.5-5.1) Chloride Level 100 mmol/L (98-107) Carbon Dioxide Level 28 mmol/L (21-32) Anion Gap 8 (6-14) Blood Urea Nitrogen 40 mg/dL (8-26) Creatinine 2.6 mg/dL (0.7-1.3) Estimated GFR (Cockcroft-Gault) 29.3 Glucose Level 208 mg/dL (70-99) Calcium Level 8.6 mg/dL (8.5-10.1) Magnesium Level 2.0 mg/dL (1.8-2.4) Glucose (Fingerstick) 206 mg/dL (70-99) Test 12/07/16 10:34 Glucose (Fingerstick) 273 mg/dL (70-99) Microbiology 12/04/16 Blood Culture - Preliminary, Resulted NO GROWTH AFTER 2 DAYS Medications Current Medications Heparin Sodium/ Dextrose 500 ml @ 0 mls/hr CONT PRN IV SEE I/O RECORD Last administered on 12/07/16t 09:59; Start 12/03/16 at 13:00 Heparin Sodium (Porcine) (Heparin Sodium) 2,450 unit PRN Q6HRS PRN IV FOR UFH LEVEL LESS THAN 0.2 Last administered on 12/03/16 13:30; Start 12/03/16 at 13: 00 Albuterol/ Ipratropium (Duoneb) 3 ml RTQID NEB Last administered on 12/07/16 07:34; Start 12/03/16 at 14:00 Sodium Chloride 1,000 ml @ 60 mls/hr [id number] IV ; Start 12/03/16 at 15:30; Stop 12/03/16 at 17:15; Status DC Acetylcysteine (Mucomyst 20% Oral Solution) 600 mg BID PO Last administered on 12/05/16 08:46; Start 12/03/16 at 21:00; Stop 12/05/16 at 20:59; Status DC Albuterol Sulfate (Ventolin Neb Soln) 2.5 mg PRN Q2HR PRN NEB [id number] Last administered on 12/03/16 23:49; Start 12/03/16 at 17:00 Aspirin (Ecotrin) 325 mg 1X ONCE PO Last administered on 12/03/16 20:16; Start 12/03/16 at 19:15; Stop 12/04/16 at 09:42; Status DC Aspirin (Ecotrin) 325 mg [id number] PO Last administered on 12/07/16 09:08; Start 12/04/16 at 08:00 Nitroglycerin (Nitro-Bid Oint) 1.5 inch Q6HRS TP ; Start 12/04/16 at 00:00; Stop 12/04/16 at 00:00; Status DC Nitroglycerin (Nitro-Bid Oint) 1.5 inch Q6HRS TP Last administered on 06:19; Start 12/04/16 at 00:00; Stop 12/04/16 at 15:44; Status DC Nitroglycerin (Nitrostat) 0.4 mg PRN Q5MIN PRN SL CHEST PAIN; Start 12/04/16 at 01:00; Stop 12/04/16 at 10:57; Status DC Furosemide (Lasix) 80 mg 1X ONCE IVP Last administered on 12/04/16 01:07; Start 12/04/16 at 01:00; Stop 12/04/16 at 01:01; Status DC Info (Do NOT chart on this placeholder) 1 each PRN 1X PRN MC SEE COMMENTS; Start 12/04/16 at 08:30; Status UNV Influenza Virus Vaccine Quadrival (Fluarix Quad [id number] Syringe) 0.5 ml ONCE ONCE VAX IM Last administered on 12/04/16 09:10; Start 12/04/16 at 08:45; Stop 12/04/16 at 08:46; Status DC Amlodipine Besylate (Norvasc) 5 mg DAILY PO Last administered on 12/05/16 08: 46; Start 12/04/16 at 10:00; Stop 12/05/16 at 11:15; Status DC Aspirin (Children'S Aspirin) 81 mg DAILY PO ; Start 12/04/16 at 11:00; Stop at 11:00; Status DC Buspirone HCl (Buspar) 5 mg DAILY PO Last administered on 12/07/16 09:08; Start 12/04/16 at 10:00 Vitamin D (Vitamin D3) 2,000 unit DAILY PO Last administered on 12/07/16 09:08 ; Start 12/04/16 at 10:00 Donepezil HCl (Aricept) 10 mg DAILY PO Last administered on 12/07/16 09:08; Start 12/04/16 at 10:00 Furosemide (Lasix) 80 mg [id number] PO Last administered on 12/07/16 09:07; Start 12/04/16 at 10:00 Insulin Aspart (NovoLOG) 16 units TIDWMEALS SQ Last administered on 12/07/16 09:13; Start 12/04/16 at 12:00 Albuterol/ Ipratropium (Duoneb) 3 ml PRN BID PRN NEB SHORTNESS OF BREATH; Start 12/04/16 at 09:30; Status Cancel Lisinopril (Prinivil) 30 mg BID PO ; Start 12/04/16 at 10:00; Stop 12/04/16 at 10:54; Status DC Magnesium Oxide (Magnesium Oxide) 400 mg DAILY PO Last administered on 09:08; Start 12/04/16 at 10:00 Nitroglycerin (Nitrostat) 0.4 mg PRN Q5MIN PRN SL CHEST PAIN; Start 12/04/16 at 09:30 Sennosides (Senna) 8.6 mg PRN DAILY PRN PO CONSTIPATION; Start 12/04/16 at 09: 30 Spironolactone (Aldactone) 25 mg DAILY PO Last administered on 12/06/16 09:41 ; Start 12/04/16 at 10:00; Stop 12/06/16 at 17:10; Status DC Tamsulosin HCl (Flomax) 0.4 mg HS PO Last administered on 12/06/16 21:38; Start 12/04/16 at 21:00 Insulin Detemir (Levemir) 26 units QHS SQ Last administered on 12/05/16 20:37 ; Start 12/04/16 at 21:00 Isosorbide Mononitrate (Imdur) 120 mg DAILY PO Last administered on 12/07/16 09:09; Start 12/04/16 at 11:00 Metoprolol Tartrate (Lopressor) 50 mg BID PO Last administered on 12/06/16 21: 44; Start 12/04/16 at 11:00; Stop 12/06/16 at 22:00; Status DC Oxybutynin Chloride (Ditropan) 5 mg BID PO Last administered on 12/07/16 09:08 ; Start 12/04/16 at 11:00 Ropinirole HCl (Requip) 0.5 mg QHS PO Last administered on 12/06/16 21:39; Start 12/04/16 at 21:00 Non-Formulary Medication 140 mg UD SQ ; Start 12/04/16 at 09:30; Stop 12/04/16 at 10:36; Status DC Sodium Bicarbonate 50 meq/Sodium Chloride 1,050 ml @ 50 mls/hr Q21H IV Last administered on 12/05/16 17:19; Start 12/04/16 at 15:00; Stop 12/06/16 at 11:38 ; Status DC Vancomycin HCl (Vanco Per Pharmacy) 1 each PRN DAILY PRN MC SEE COMMENTS Last administered on 12/04/16 16:35; Start 12/04/16 at 16:30; Stop 12/05/16 at 07:37 ; Status DC Piperacillin Sod/ Tazobactam Sod 2.25 gm/Sodium Chloride 50 ml @ 100 mls/hr Q6HRS IV Last administered on 9/30/17at 06:03; Start 12/04/16 at 17:00; Stop at 06:47; Status DC Vancomycin HCl 2 gm/Sodium Chloride 500 ml @ 250 mls/hr 1X ONCE IV ; Start at 17:00; Stop 12/04/16 at 17:00; Status DC Vancomycin HCl 1.5 gm/Sodium Chloride 500 ml @ 250 mls/hr Q24H IV Last administered on 12/04/16 16:56; Start 12/04/16 at 17:00; Stop 12/05/16 at 07:37 ; Status DC Vancomycin HCl 1 each 1X ONCE MC ; Start 12/06/16 at 16:30; Stop 12/06/16 at 16 :31; Status Cancel Magnesium Sulfate/ Dextrose 50 ml @ 25 mls/hr 1X ONCE IV Last administered on 12/05/16 09:04; Start 12/05/16 at 09:00; Stop 12/05/16 at 10:59; Status DC Info (Anti-Coagulation Monitoring By Pharmacy) 1 each PRN DAILY PRN MC SEE COMMENTS Last administered on 12/06/16 14:13; Start 12/05/16 at 09:00 Lisinopril (Prinivil) 5 mg DAILY PO Last administered on 12/07/16 09:07; Start 12/05/16 at 12:00 Metoprolol Succinate (Toprol Xl) 100 mg DAILY PO Last administered on 09:08; Start 12/07/16 at 09:00 Atorvastatin Calcium (Lipitor) 20 mg QHS PO Last administered on 12/06/16 21: 39; Start 12/06/16 at 21:00 Active Scripts Active Reported Duoneb 0.5-3(2.5) Mg/3 Ml (Albuterol/Ipratropium) 3 Ml Ampul.neb 3 Ml NEB PRN BID PRN NITROGLYCERIN SubLingual (Nitroglycerin) 0.4 Mg Tab.subl 0.4 Mg SL PRN Q5MIN PRN Buspirone Hcl 5 Mg Tablet 1 Tab PO DAILY Oxybutynin Chloride Er (Oxybutynin Chloride) 10 Mg Tab.er.24 1 Tab PO DAILY Novolog Flexpen (Insulin Aspart) 100 Unit/1 Ml Insuln.pen 16 Unit SQ TIDWMEALS Tamsulosin Hcl 0.4 Mg Cap.er.24h 1 Cap PO HS Lisinopril 20 Mg Tablet 1.5 Tab PO BID [lyric evolocumab] 140 Mg SQ UD every 2 months Magnesium Oxide 400 Mg Tablet 400 Mg PO DAILY Isosorbide Mononitrate Er (Isosorbide Mononitrate) 60 Mg Tab.er.24h 120 Mg PO DAILY Requip (Ropinirole Hcl) 0.5 Mg Tablet 0.5 Mg PO HS Donepezil Hcl 10 Mg Tablet 1 Tab PO DAILY Vitamin D3 (Cholecalciferol (Vitamin D3)) 1,000 Unit Tablet 2 Tab PO DAILY Spironolactone 25 Mg Tablet 1 Tab PO DAILY Aspirin 81 Mg Tab.chew 1 Tab PO DAILY Novolin R (Insulin Regular, Human) 100 Unit/1 Ml Vial 100 Unit IJ Lantus Solostar (Insulin Glargine,Hum.rec.anlog) 100 Unit/1 Ml Insuln.pen 26 Unit SQ QHS Amlodipine Besylate 10 Mg Tablet 5 Mg PO HS Senokot (Sennosides) 8.6 Mg Tablet 8.6 Mg PO PRN DAILY PRN Metoprolol Tartrate 100 Mg Tablet 0.5 Tab PO BID Furosemide 40 Mg Tablet 2 Tab PO [id number] Vitals/I & O Vital Sign - Last 24 Hours 12/06/16 12/06/16 12/06/16 12/06/16 12:00 12:00 12:33 15:00 Temp 99.4 99.3 99.4 99.3 Pulse 96 79 Resp 22 24 B/P (MAP) 101/46 (64) 107/61 (76) Pulse Ox 97 98 98 O2 Delivery Nasal Cannula Nasal Cannula Nasal Cannula Nasal Cannula O2 Flow Rate 2.0 2.0 2.0 2.0 12/06/16 12/06/16 12/06/16 12/06/16 16:10 19:40 20:00 20:02 Temp 98.1 98.1 Pulse 78 Resp 23 B/P (MAP) 104/58 (73) Pulse Ox 98 100 99 O2 Delivery Nasal Cannula Nasal Cannula Nasal Cannula Nasal Cannula O2 Flow Rate 2.0 2.0 2.0 2.0 12/06/16 12/06/16 12/07/16 12/07/16 21:44 23:50 03:34 07:00 Temp 98.4 97.9 97.4 98.4 97.9 97.4 Pulse 79 80 80 84 Resp 27 23 22 B/P (MAP) 107/61 113/72 (86) 143/80 (101) 122/64 (83) Pulse Ox 100 100 98 O2 Delivery Nasal Cannula Nasal Cannula Nasal Cannula O2 Flow Rate 2.0 2.0 2.0 12/07/16 12/07/16 12/07/16 12/07/16 07:34 07:53 09:07 09:08 Pulse 82 82 B/P (MAP) 122/64 122/64 Pulse Ox 99 O2 Delivery Nasal Cannula Nasal Cannula O2 Flow Rate 2.0 2.0 12/07/16 09:09 Pulse 82 B/P (MAP) 122/64 Intake and Output 12/07/16 12/07/16 12/08/16 15:00 23:00 07:00 Intake Total 200 ml Balance 200 ml CAN XIAO MD 12/07/16 1338: PROGRESS NOTES Plan Plan of Care Patient seen and examined. Agree with above nurse practitioner note. Mr. Prater unfortunately had again another episode of cardiac ischemia with a non-ST elevation myocardial infarction. His ejection fraction is continually decreased over the course of last several months. He would now qualify for a defibrillator. He has significant distal vessel occlusive disease not easily amenable to percutaneous coronary intervention. He may benefit from enhanced external counterpulsation therapy to improve his quality of life. Okay to discharge from cardiac standpoint with close follow-up either through our clinic or at the [facility] in the next 7-10 days. SUE LEMON APRN Dec 07, 2016 11:20 CAN XIAO MD Dec 07, 2016 13:38
--- NOTE | 2016-12-07 11:28 | PDOC ---
Renal-Progress Notes Subjective Notes Notes NO NEW COMPLAINTS History of Present Illness Hx of present illness STABLE Vitals Vitals Vital Signs Date Time Temp Pulse Resp B/P (MAP) Pulse Ox O2 Delivery O2 Flow Rate FiO2 12/07/16 11:00 97.9 79 22 116/63 (80) 98 Nasal Cannula 2.0 97.9 Weight Weight [ ] I.O. Intake and Output Intake and Output 12/08/16 07:00 Intake Total 200 ml Balance 200 ml Intake Oral 200 ml Labs Labs Laboratory Tests Test 12/06/16 12:02 12/06/16 15:00 12/06/16 16:15 12/06/16 20:50 Glucose (Fingerstick) 187 mg/dL (70-99) 107 mg/dL (70-99) 65 mg/dL (70-99) Heparin Anti-Xa Act, Unfractionated 0.25 IU/mL (0.30-0.70) Test 12/07/16 01:45 12/07/16 06:00 12/07/16 08:16 12/07/16 09:20 Heparin Anti-Xa Act, Unfractionated 0.41 IU/mL (0.30-0.70) 0.35 IU/mL (0.30-0.70) Sodium Level 136 mmol/L (136-145) Potassium Level 3.9 mmol/L (3.5-5.1) Chloride Level 100 mmol/L (98-107) Carbon Dioxide Level 28 mmol/L (21-32) Anion Gap 8 (6-14) Blood Urea Nitrogen 40 mg/dL (8-26) Creatinine 2.6 mg/dL (0.7-1.3) Estimated GFR (Cockcroft-Gault) 29.3 Glucose Level 208 mg/dL (70-99) Calcium Level 8.6 mg/dL (8.5-10.1) Magnesium Level 2.0 mg/dL (1.8-2.4) Glucose (Fingerstick) 206 mg/dL (70-99) Test 12/07/16 10:34 Glucose (Fingerstick) 273 mg/dL (70-99) Micro Micro Microbiology 12/04/16 Blood Culture - Preliminary, Resulted NO GROWTH AFTER 2 DAYS Review of Systems Constitutional: yes: weakness, alert, oriented Ears/Nose/Throat: Yes: no symptom reported Eyes: Yes: no symptom reported Cardiovascular: Yes edema Gastrointestional: Yes: no symptom reported Genitourinary: Yes: no symptom reported Musculoskeletal: Yes: muscle stiffness Skin: Yes no symptom reported Endocrine: Yes: no symptom reported Physical Exam General Appearance: no apparent distress Skin: warm, dry Respiratory: decreased breath sounds Heart: S1S2 Abdomen: soft Genitourinary: bladder flat Neurology: alert, follow commands Assessment Assessment IMP CKD STAGE 3 TO 4 HYPERKALEMIA-RESOLVED SEVERE CM WITH EF OF 15% DM II HTN BPH - ON FLOMAX DECONDITIONING PLAN OFF IVF'S CONT LASIX CONT WITH HIS CHANELLE-I AVOID RESUMING K SPARING DIURETIC FOR NOW MAY END UP NEEDING DIALYSIS AT SOME POINT NEED PT KAMALA KELLY MD Dec 07, 2016 11:28
--- NOTE | 2016-12-07 11:29 | PDOC ---
PULMONARY PROGRESS NOTES Subjective NO MORE PAIN NO INCREASE SOA Vitals Vital Signs Date Time Temp Pulse Resp B/P (MAP) Pulse Ox O2 Delivery O2 Flow Rate FiO2 12/07/16 11:00 97.9 79 22 116/63 (80) 98 Nasal Cannula 2.0 97.9 ROS: No Nausea, No Chest Pain, No Abdominal Pain Lungs: Clear Cardiovascular: S1, S2 Abdomen: Soft Neuro Exam: Alert Extremities: No Edema Skin: Warm Labs Laboratory Tests Test 12/05/16 12:17 12/05/16 12:30 12/05/16 16:46 12/05/16 19:30 Glucose (Fingerstick) 160 mg/dL (70-99) 110 mg/dL (70-99) Heparin Anti-Xa Act, Unfractionated 0.64 IU/mL (0.30-0.70) 0.37 IU/mL (0.30-0.70) Test 12/05/16 20:34 12/06/16 03:00 12/06/16 07:10 12/06/16 08:51 Glucose (Fingerstick) 177 mg/dL (70-99) 187 mg/dL (70-99) Sodium Level 137 mmol/L (136-145) Potassium Level 4.2 mmol/L (3.5-5.1) Chloride Level 101 mmol/L (98-107) Carbon Dioxide Level 28 mmol/L (21-32) Anion Gap 8 (6-14) Blood Urea Nitrogen 45 mg/dL (8-26) Creatinine 2.7 mg/dL (0.7-1.3) Estimated GFR (Cockcroft-Gault) 28.0 Glucose Level 202 mg/dL (70-99) Calcium Level 8.6 mg/dL (8.5-10.1) Phosphorus Level 4.2 mg/dL (2.6-4.7) Magnesium Level 1.9 mg/dL (1.8-2.4) Heparin Anti-Xa Act, Unfractionated 0.22 IU/mL (0.30-0.70) Test 12/06/16 12:02 12/06/16 15:00 12/06/16 16:15 12/06/16 20:50 Glucose (Fingerstick) 187 mg/dL (70-99) 107 mg/dL (70-99) 65 mg/dL (70-99) Heparin Anti-Xa Act, Unfractionated 0.25 IU/mL (0.30-0.70) Test 12/07/16 01:45 12/07/16 06:00 12/07/16 08:16 12/07/16 09:20 Heparin Anti-Xa Act, Unfractionated 0.41 IU/mL (0.30-0.70) 0.35 IU/mL (0.30-0.70) Sodium Level 136 mmol/L (136-145) Potassium Level 3.9 mmol/L (3.5-5.1) Chloride Level 100 mmol/L (98-107) Carbon Dioxide Level 28 mmol/L (21-32) Anion Gap 8 (6-14) Blood Urea Nitrogen 40 mg/dL (8-26) Creatinine 2.6 mg/dL (0.7-1.3) Estimated GFR (Cockcroft-Gault) 29.3 Glucose Level 208 mg/dL (70-99) Calcium Level 8.6 mg/dL (8.5-10.1) Magnesium Level 2.0 mg/dL (1.8-2.4) Glucose (Fingerstick) 206 mg/dL (70-99) Test 12/07/16 10:34 Glucose (Fingerstick) 273 mg/dL (70-99) Laboratory Tests Test 12/06/16 12:02 12/06/16 15:00 12/06/16 16:15 12/06/16 20:50 Glucose (Fingerstick) 187 mg/dL (70-99) 107 mg/dL (70-99) 65 mg/dL (70-99) Heparin Anti-Xa Act, Unfractionated 0.25 IU/mL (0.30-0.70) Test 12/07/16 01:45 12/07/16 06:00 12/07/16 08:16 12/07/16 09:20 Heparin Anti-Xa Act, Unfractionated 0.41 IU/mL (0.30-0.70) 0.35 IU/mL (0.30-0.70) Sodium Level 136 mmol/L (136-145) Potassium Level 3.9 mmol/L (3.5-5.1) Chloride Level 100 mmol/L (98-107) Carbon Dioxide Level 28 mmol/L (21-32) Anion Gap 8 (6-14) Blood Urea Nitrogen 40 mg/dL (8-26) Creatinine 2.6 mg/dL (0.7-1.3) Estimated GFR (Cockcroft-Gault) 29.3 Glucose Level 208 mg/dL (70-99) Calcium Level 8.6 mg/dL (8.5-10.1) Magnesium Level 2.0 mg/dL (1.8-2.4) Glucose (Fingerstick) 206 mg/dL (70-99) Test 12/07/16 10:34 Glucose (Fingerstick) 273 mg/dL (70-99) Medications Active Scripts Medications Dose Route/Sig Max Daily Dose Days Date Category Dose Instructions Duoneb 0.5-3(2.5) Mg/3 Ml (Albuterol/Ipratropium) 3 Ml Ampul.neb 3 Ml NEB PRN BID PRN 12/03/16 Reported NITROGLYCERIN SubLingual (Nitroglycerin) 0.4 Mg Tab.subl 0.4 Mg SL PRN Q5MIN PRN 12/03/16 Reported Buspirone Hcl 5 Mg Tablet 1 Tab PO DAILY 12/03/16 Reported Oxybutynin Chloride Er (Oxybutynin Chloride) 10 Mg Tab.er.24 1 Tab PO DAILY 12/03/16 Reported Novolog Flexpen (Insulin Aspart) 100 Unit/1 Ml Insuln.pen 16 Unit SQ TIDWMEALS 12/03/16 Reported Tamsulosin Hcl 0.4 Mg Cap.er.24h 1 Cap PO HS 12/03/16 Reported Lisinopril 20 Mg Tablet 1.5 Tab PO BID 12/03/16 Reported [lyric evolocumab] 140 Mg SQ UD 12/03/16 Reported every 2 months Magnesium Oxide 400 Mg Tablet 400 Mg PO DAILY 12/03/16 Reported Isosorbide Mononitrate Er (Isosorbide Mononitrate) 60 Mg Tab.er.24h 120 Mg PO DAILY 12/03/16 Reported Requip (Ropinirole Hcl) 0.5 Mg Tablet 0.5 Mg PO HS 12/03/16 Reported Donepezil Hcl 10 Mg Tablet 1 Tab PO DAILY 12/03/16 Reported Vitamin D3 (Cholecalciferol (Vitamin D3)) 1,000 Unit Tablet 2 Tab PO DAILY 12/03/16 Reported Spironolactone 25 Mg Tablet 1 Tab PO DAILY 12/03/16 Reported Aspirin 81 Mg Tab.chew 1 Tab PO DAILY 12/03/16 Reported Novolin R (Insulin Regular, Human) 100 Unit/1 Ml Vial 100 Unit IJ 12/03/16 Reported Lantus Solostar (Insulin Glargine,Hum.rec.anlog) 100 Unit/1 Ml Insuln.pen 26 Unit SQ QHS 12/03/16 Reported Amlodipine Besylate 10 Mg Tablet 5 Mg PO HS 12/03/16 Reported Senokot (Sennosides) 8.6 Mg Tablet 8.6 Mg PO PRN DAILY PRN 12/03/16 Reported Metoprolol Tartrate 100 Mg Tablet 0.5 Tab PO BID 12/03/16 Reported Furosemide 40 Mg Tablet 2 Tab PO BID92 12/03/16 Reported Impression . 1. Acute hypoxemic respiratory failure secondary to acute systolic heart failure. 2. Acute on chronic systolic heart failure. 3. Cardiomyopathy, ejection fraction 15%. 4. Coronary artery disease status post coronary artery bypass grafting and Valvular heart replacement. 5. Diabetes with complications. 6. Chronic obstructive pulmonary disease, unknown FEV1. 7. Acute renal insufficiency. 8. Elevated troponin, suspect non-ST segment elevation myocardial infarction. 9. Hyperkalemia. 10. Type 2 diabetes, uncontrolled. Plan . UP TO CHAIR 02, PT LESS SOA FOLLOW CARD INPUT WILL FOLLOW RENAL INPUT 02 REPEAT CXR TODAY CARMELINA ADAMS MD Dec 07, 2016 11:29
[2016-12-07] MEDS ORDERED: FURO40TA4 PO (11:55)
--- NOTE | 2016-12-07 12:10 | RAD ---
AP chest. History: Congestive heart failure AP view was taken of the chest. There is been an improvement in the pulmonary edema compared to the prior study. There is no effusion. There are no new infiltrates. Heart is normal in size with evidence of prior bypass. Impression: 1. Improved pulmonary edema.
[2016-12-07] MEDS: ANTI-COAG MONITOR BY PHARMACY. MC PRN (12:28)
[2016-12-07] MEDS ORDERED: FUROSEMIDE 40 MG TABLET. PO SCH (14:00)
[2016-12-07 15:05] VITALS: BP 105/61
--- NOTE | 2016-12-10 11:24 | DS ---
DATE OF DISCHARGE: 12/07/2016 HISTORY OF PRESENT ILLNESS: The patient is a 76-year-old male patient who was seen initially at the Emergency Room of [facility] with retrosternal chest pain, which woke him up from sleep. He apparently took nitroglycerin, which relieved his discomfort, went back to sleep only to be awakened again another hour later with recurrent pain. During the episode he presented to the Emergency Room. On evaluation, he also complained of shortness of breath, diaphoresis. His pain again resolved in the Emergency Room after he took a nitroglycerin. While in the Emergency Room, he was noted to be in mild congestive heart failure. He was given 80 mg of IV Lasix and given sublingual nitroglycerin. He was also started on nitro paste, had another episode of chest pain and diaphoresis while in the Emergency Room that has resolved. He was admitted to the ICU of [facility]. His initial cardiac enzyme was slightly elevated at 0.519. He was also noted to have impaired kidney function with a creatinine of 2.2 while in the ICU. His second cardiac enzyme went up to 1.017 and in consultation with the Cardiology team he was transferred to [facility] ICU. He has had an echocardiogram, which shows ejection fraction of only 10%, and given his worsening kidney function the cardiologists were reluctant to do angiography. The patient was treated aggressively medically and he stabilized, although his troponin has risen to 25. His creatinine was trending up and basically a decision was made by the burling and joining supervisor not to pursue any invasive procedure. The patient stabilized and on the day of discharge the patient was resting comfortably in bed, in no apparent respiratory distress. On questioning him, he denied any complaint, in particular denied any chest pain, shortness of breath, orthopnea, or paroxysmal nocturnal dyspnea. PHYSICAL EXAMINATION: GENERAL: On examining him, he looked well and was clearly in no apparent respiratory distress, pale, but no jaundice, cyanosis, or thyromegaly. No jugular venous distention. No limb edema. VITAL SIGNS: His heart rate was 79, blood pressure was 105/61, temperature was 97.9, respiratory rate was 24, and oxygen saturation was 97% on room air. HEAD, EYES, EARS, NOSE AND THROAT: Showed normocephalic, atraumatic. NECK: Supple. HEART: Showed normal first and second heart sounds. No gallop, rub or murmur. CHEST: Clear to auscultation. No crepitation or rhonchi. ABDOMEN: Distended, soft, nontender. No guarding or rigidity. No organomegaly. All hernial orifices intact. Bowel sounds normal. NEUROLOGIC: He was awake, alert, responding appropriately. Cranial nerves intact. He moves extremities without difficulty, ambulates with a walker without any assistance. INS AND OUTS: His intake over the last 24 hours was 1500, output was 2320. LABORATORY DATA: On the day of discharge showed white cell count of 7300, hemoglobin 11.5, hematocrit 34, MCV 92, and platelet count of 199,000. His chemistry showed a serum sodium 136, potassium 3.9, chloride 100, bicarbonate 28, anion gap of 8, BUN 40, creatinine 2.6, estimated GFR was 29 mL per minute. His glucose was 108, calcium was 8.5, magnesium 2. DISCHARGE MEDICATIONS: The patient was discharged home with home health to continue on following medications: Furosemide 40 mg twice a day, amlodipine 10 mg once a day, aspirin 81 mg once a day, buspirone 5 mg daily, cholecalciferol for vitamin D3 at 2000 International Units once a day, Aricept 10 mg once a day. He is on NovoLog insulin 16 units before meals and Lantus insulin 26 units at bedtime. He is on ipratropium bromide and albuterol inhaler by nebulizer twice a day, isosorbide mononitrate 120 mg once a day, lisinopril 5 mg once a day, metoprolol tartrate 100 mg half a tablet twice a day, nitroglycerin 0.4 mg every 5 minutes as needed, oxybutynin chloride 1 tablet p.o. daily, ropinirole for ReQuip 0.5 mg at bedtime, senna 1 tablet once a day, spironolactone 25 mg once a day, tamsulosin 0.4 mg at bedtime. FINAL DISCHARGE DIAGNOSES: 1. Non-ST segment elevation myocardial infarction. 2. Acute on chronic systolic congestive heart failure, ejection fraction has dropped down to 15%. 3. Coronary artery disease, status post coronary artery bypass graft surgery. 4. Hypertension, seems to be well controlled. 5. Hyperlipidemia. 6. Type 2 diabetes mellitus, insulin requiring. This seems to be well controlled. 7. Chronic obstructive pulmonary disease. 8. Obstructive sleep apnea. 9. Benign prostatic hypertrophy, on Flomax. 10. Diabetic peripheral neuropathy. 11. Acute on chronic kidney injury, resolving. 12. Proteinuria. 13. Posttraumatic stress disorder. PLAN: The patient was advised to follow with Dr. Wilkes, his perforator operator, at the [facility] and he will be followed by the home health agency from the [facility]. He was restarted on lisinopril 5 mg only as per Dr. Campos and we cut down his Lasix to 40 mg twice a day. TANVI ROME MD DR: LAURIE/galdino JOB#: [id number] / [id number]
== END 2016-12-07 17:10 | disposition home health service (06) | DRG 280 ==
LOC: 1 WEST ICU 12:42 → 2 NORTH 12-06 11:22
PROVIDERS: ADMIT Internal Medicine; ATTEND Internal Medicine
PROC: 02HV33Z Insertion of Infusion Device into Superior Vena Cava, Percutaneous Approach (ICD-10-PCS; principal; 2016-12-06)
DX: I21.4 Non-ST elevation (NSTEMI) myocardial infarction (principal); J96.21 Acute and chronic respiratory failure with hypoxia; I50.43 Acute on chronic combined systolic (congestive) and diastolic (congestive) heart failure; N18.4 Chronic kidney disease, stage 4 (severe); E87.2 Acidosis; N17.9 Acute kidney failure, unspecified; I13.0 Hypertensive heart and chronic kidney disease with heart failure and stage 1 through stage 4 chronic kidney disease, or unspecified chronic kidney disease; E11.22 Type 2 diabetes mellitus with diabetic chronic kidney disease; I25.10 Atherosclerotic heart disease of native coronary artery without angina pectoris; N40.0 Benign prostatic hyperplasia without lower urinary tract symptoms; E78.5 Hyperlipidemia, unspecified; F43.10 Post-traumatic stress disorder, unspecified; E11.42 Type 2 diabetes mellitus with diabetic polyneuropathy; E87.5 Hyperkalemia; F03.90 Unspecified dementia, unspecified severity, without behavioral disturbance, psychotic disturbance, mood disturbance, and anxiety; G25.81 Restless legs syndrome; G47.33 Obstructive sleep apnea (adult) (pediatric); G47.00 Insomnia, unspecified; K59.09 Other constipation; J44.9 Chronic obstructive pulmonary disease, unspecified; I25.5 Ischemic cardiomyopathy; Z95.1 Presence of aortocoronary bypass graft; Z86.73 Personal history of transient ischemic attack (TIA), and cerebral infarction without residual deficits; Z88.6 Allergy status to analgesic agent; Z95.2 Presence of prosthetic heart valve; Z87.891 Personal history of nicotine dependence; Z79.4 Long term (current) use of insulin; Z79.01 Long term (current) use of anticoagulants
CPT/HCPCS: 36415; 36569; 71010; 80048; 80053; 80061; 82962; 83605; 83735; 84100; 84484; 85007; 85025; 85520; 85730; 87040; 87641; 90686; 93005; 94250; 94620; 94640; 94660; 94760; J1644; J1815; J2543; J3370; J7040; J7060; J7613; J7620